=== PATIENT | female | born 1965 | race Caucasian/White ===

== ENCOUNTER → 2020-11-20 14:45 | Outpatient (CLI) | payer OTHER, SELFPAY ==
--- NOTE | ~2020-11-20 | XR_ITS ---
XR knee RT min 4V 11/20/2020 15:41 Indication: Right knee pain Procedure: 4 views right knee Comparison: No prior studies for comparison. Findings: There is moderate osteoarthritis of the right knee characterized by joint narrowing and mar ginal osteophytes. No fracture or traumatic malalignment. Small joint effusion. Impression: 1: Moderate osteoarthritis of the right knee. Reviewed, dictated and finalized at location A. Impression: 1: Moderate osteoarthritis of the right knee.
--- NOTE | ~2020-11-20 | XR_ITS ---
XR knee LT min 4V 11/20/2020 15:40 Indication: Left knee pain Procedure: 4 views left knee Comparison: No prior studies for comparison. Findings: There is moderate osteoarthritis of the left knee. Small knee effusion. No fracture or trau matic malalignment. Impression: 1: Moderate osteoarthritis of the left knee. Reviewed, dictated and finalized at location A. Impression: 1: Moderate osteoarthritis of the left knee.
== END ==
PROVIDERS: PCP Family Medicine; Visit Provider Physician Assistant
DX: M17.0 Bilateral primary osteoarthritis of knee (principal)
CPT/HCPCS: 73564

== ENCOUNTER → 2023-07-25 15:33 | Outpatient (CLI) | payer OTHER, SELFPAY ==
--- NOTE | ~2023-07-25 | MM_ITS ---
EXAMINATION: MM screening scott BI w jocelynn HISTORY: Screening TECHNIQUE: Craniocaudal and mediolateral oblique 3-D tomosynthesis images were obtained and synthetic 2-D images were generated. CAD analysis was submitted and interpreted. COMPARISON: Comparison to multiple prior studies sequentially, with oldest reviewed study dated 05/05. BREAST PARENCHYMAL COMPOSITION: Breast composed of scattered areas of fibroglandular density FINDINGS: There is no evidence of suspicious mass, calcification, or architectural distortion to sugg est malignancy in either breast. There has been no suspicious interval change. IMPRESSION: 1. No mammographic evidence of malignancy. 2. Recommend routine screening mammography in one year. 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
== END ==
PROVIDERS: PCP Physician Assistant; Visit Provider Physician Assistant
DX: Z12.31 Encounter for screening mammogram for malignant neoplasm of breast (principal)
CPT/HCPCS: 77063; 77067

== ENCOUNTER 2023-10-31 09:24 | Outpatient (CLI) | payer OTHER, SELFPAY ==
--- NOTE | 2023-11-11 14:03 | WPDSLEEPSTUD ---
Sleep Study Date of Study: 10/31/23 Ordering Provider: Talia Gonzales PAC Interpreting Physician: Gladys Rothman DO Sleep Study Type: Polysomnogram Height: 1.6 m Weight: 70.76 kg Body Mass Index: 27.6 Neck Circumference (inches): 13 [place]: 12 Reason for Sleep Study Needs new CPAP equipment. Insurance required new study. Sleep History The patient is a 58-year-old female with previously diagnosed sleep apnea in 2011 that had a sleep study ordered by her primary care to get new CPAP equipment. The patient constantly awakens from sleep short of breath. She constantly snores and is constantly loud enough that others complain. She constantly has trouble sleeping when she has a cold. She constantly wakes up gasping for air throughout the night. She constantly has breathing problems at night observed by herself or others. She rarely sweats excessively at night. She rarely has heart palpitations or irregular heartbeats during the night. She occasionally falls asleep during the day but never while driving. She denies cataplexy. She rarely has trouble at school or work due to sleepiness. She rarely experiences vivid dreamlike scenes upon awakening or falling asleep. She denies feeling afraid of going to sleep. She denies having nightmares. She rarely remembers her dreams. She occasionally has thoughts racing through her mind. She rarely feels sad or depressed. She occasionally has anxiety. She occasionally has muscular tension. She rarely notices parts of her body jerk. She rarely kicks during the night. She rarely has crawling and aching feelings in her legs but frequently has leg pain during the night. She occasionally grinds her teeth during sleep but rarely awakens with morning jaw pain. She is frequently bothered by pain during the day but rarely awakened by pain during the night. She frequently wakes up feeling stiff in the morning. She occasionally wakes up with sore or achy muscles. She rarely wakes up with pain in the neck, spine and other joints. She goes to bed at 11:00 p.m. on both weekdays and weekends. She can fall asleep within a few minutes. She wakes up twice throughout the night to urinate and is able to fall back asleep within 5 minutes. She wakes up at 5:30 a.m. on weekdays and 8:00 a.m. on the weekends. She typically gets 6-7 hours of sleep per night. She does not stay in bed after waking up in the morning. She currently lives with her and children. She denies consuming any caffeinated beverages within 2 hours of bedtime. She denies engaging in physical exercise before bedtime. She will watch television before falling asleep. She denies taking naps in the afternoon or the evening. She consumes 2 cups of caffeinated beverage per day. She will have a couple glasses of an alcoholic beverage per week. She denies tobacco and recreational drug use. [facility] Past Medical History Medical History Adjustment disorder Glomerulonephritis pauci-immune 04/12 DANIELLA (obstructive sleep apnea) Vitamin D deficiency Surgical History Surgical History History of 2003 Family History Family History Other Arthritis Cancer Diabetes mellitus Heart disease Hypertension Neuropathy Social History Social History Smoking status: Never smoker Alcohol intake: current Drinks per week: 3 Substance use: never Substance use type: does not use Current Housing: Decline to Answer Concerned About Future Housing: Decline to Answer Difficulty Paying Gas/Electric Bills: Decline to Answer Difficulty Paying for Meds: Decline to Answer Currently Unemployed: Decline to Answer Education: Decline to Answer Difficulty w/ Childcare or Family Care: Decl
[2023-11-11 14:04] VITALS: BMI 27.6
== END 2023-11-01 06:45 | disposition home or self-care (01) ==
LOC: ANHCSM 09:24
PROVIDERS: PCP Physician Assistant; Visit Provider Physician Assistant
DX: G47.33 Obstructive sleep apnea (adult) (pediatric) (principal); R06.83 Snoring; G47.61 Periodic limb movement disorder
CPT/HCPCS: 95810

== ENCOUNTER 2023-12-22 09:51 | Outpatient (CLI) | payer OTHER, SELFPAY ==
--- NOTE | 2023-12-25 21:36 | WPDHOMESLEEP ---
Sleep Study - Home Unattended Date of Study: 12/22/23 Ordering Provider: ALEXANDRA Travis Interpreting Provider: Santa Lee MD Home Sleep Study Type: Watch PAT Height: 1.63 m Weight: 71.214 kg Body Mass Index: 26.9 Neck Circumference (inches): 14 [place]: 12 Reason for Sleep Study Obstructive sleep apnea; she was retested with a basic sleep study 10/31/2023 to get new equipment; her in-lab study on Oct 30 showed an apnea-hypopnea index of of 1.6 with desaturation to 83% which did not qualify her for new equipment. The AHI was normal however her desaturation was low. Her in-lab study was negative due to using PAP up until the night of testing. She returns now for a home sleep test to re-qualify for CPAP equipment. Sleep History Sharon Kim is a 58-year-old female with previously diagnosed sleep apnea in 2011 who was tested to get new CPAP equipment. She had a basic sleep study October 31, 2023 with an AHI of 1.6 and desaturation to 83%. This test showed a normal apnea hypopnea index due to using PAP up until the night of the study, so she was re-tested with the home sleep test. The patient constantly awakens from sleep short of breath. She constantly snores and is constantly loud enough that others complain. She constantly has trouble sleeping when she has a cold. She constantly wakes up gasping for air throughout the night. She constantly has breathing problems at night observed by herself or others. She rarely sweats excessively at night. She rarely has heart palpitations or irregular heartbeats during the night. She occasionally falls asleep during the day but never while driving. She denies cataplexy. She rarely has trouble at school or work due to sleepiness. She rarely experiences vivid dreamlike scenes upon awakening or falling asleep. She denies feeling afraid of going to sleep. She denies having nightmares. She rarely remembers her dreams. She occasionally has thoughts racing through her mind. She rarely feels sad or depressed. She occasionally has anxiety. She occasionally has muscular tension. She rarely notices parts of her body jerk. She rarely kicks during the night. She rarely has crawling and aching feelings in her legs but frequently has leg pain during the night. She occasionally grinds her teeth during sleep but rarely awakens with morning jaw pain. She is frequently bothered by pain during the day but rarely awakened by pain during the night. She frequently wakes up feeling stiff in the morning. She occasionally wakes up with sore or achy muscles. She rarely wakes up with pain in the neck, spine and other joints. She goes to bed at 11:00 p.m. on both weekdays and weekends. She can fall asleep within a few minutes. She wakes up twice throughout the night to urinate and is able to fall back asleep within 5 minutes. She wakes up at 5:30 a.m. on weekdays and 8:00 a.m. on the weekends. She typically gets 6-7 hours of sleep per night. She does not stay in bed after waking up in the morning. She currently lives with her and children. She denies consuming any caffeinated beverages within 2 hours of bedtime. She denies engaging in physical exercise before bedtime. She will watch television before falling asleep. She denies taking naps in the afternoon or the evening. She consumes 2 cups of caffeinated beverage per day. She will have a couple glasses of an alcoholic beverage per week. She denies tobacco and recreational drug use. 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
[2023-12-25 21:37] VITALS: BMI 26.9
== END 2023-12-23 07:30 | disposition home or self-care (01) ==
LOC: ANHCSM 09:52
PROVIDERS: PCP Physician Assistant; Visit Provider Physician Assistant
DX: G47.61 Periodic limb movement disorder (principal); G47.33 Obstructive sleep apnea (adult) (pediatric)
CPT/HCPCS: 95800

== ENCOUNTER 2024-05-09 12:23 | Emergency (ER) | payer OTHER, SELFPAY ==
--- NOTE | ~2024-05-09 | CT_ITS ---
EXAMINATION: CT brain wo con DATE: 05/09/2024 15:50 INDICATION: headache . TECHNIQUE: Computed tomography (CT) of the head was performed without intravenous contrast. The mA wa s adjusted according to patient size. Iterative reconstruction technique was employed. The dose-lengt h product was 605.33 mGy-cm. COMPARISON: None. FINDINGS: No acute intracranial hemorrhage or extra-axial fluid collection. No hydrocephalus, mass, or herniation. No acute ischemic infarct. Unremarkable dural venous sinus attenuation. No acute osseous abnormality. Partially visualized right maxillary opacification with surrounding sclerosis, the remaining aerated spaces are clear. IMPRESSION: No acute intracranial process. Chronic right maxillary sinusitis. Reviewed, dictated and finalized at location K.
[2024-05-09 12:27] VITALS: BP 146/74; PULSE 69; RESP 16; TEMP 36.6; O2SAT 99
--- NOTE | 2024-05-09 15:44 | ED.EYEPROB ---
HPI - Eye Problem General Chief complaint: Eye Problems Stated complaint: blurry vision x2d, throbbing head Time Seen by Provider: 05/09/24 15:18 History of Present Illness HPI Narrative: 58-year-old female presenting to the emergency department for evaluation for 2 weeks of elevated pressure with headache that is throbbing in nature. Patient states he does have hypertension that is typically well controlled with losartan. Patient did have a checkup 2 weeks ago was noted to have some elevated blood pressure. Patient states her systolic blood pressure has been approximately 140 since then. Patient since then she has had persistent headache. Patient has not yet contacted primary care physician regarding this issue. Related Data Home Medications Medication Instructions Recorded Confirmed losartan 25 mg tablet 25 mg PO DAILY 09/10/22 01/18/24 meloxicam 7.5 mg tablet 7.5 mg PO DAILY 05/04/24 Allergies Allergy/AdvReac Type Severity Reaction Status Date / Time amoxicillin Allergy Unknown unknown Verified 05/09/24 12:24 cephalexin Allergy Unknown Unknown Verified 05/09/24 12:24 ciprofloxacin Allergy Unknown Unknown Verified 05/09/24 12:24 Penicillins Allergy Unknown Unknown Verified 05/09/24 12:24 Sulfa (Sulfonamide Allergy Unknown Unknown Verified 05/09/24 12:24 Antibiotics) Latex, Natural Rubber AdvReac Severe Blister Verified 05/09/24 12:24 Review of Systems Review of Systems: All systems reviewed & are unremarkable except as noted in HPI and below PMFSH Past Medical History Medical History Adjustment disorder Glomerulonephritis pauci-immune 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 DANIELLA (obstructive sleep apnea) Vitamin D deficiency Surgical History Surgical History History of arthroplasty of right knee 09/2023 History of 2003 Family History Family History (Updated 05/04/24 @ 15:33 by ALIYAH Chow) Other Arthritis Cancer Diabetes mellitus Glaucoma Heart disease Hypertension Neuropathy Social History Social History (Updated 05/04/24 @ 15:33 by ALIYAH Chow) Smoking status: Never smoker Second hand tobacco smoke exposure: Yes Alcohol intake: current Drinks per week: 3 Substance use: never Substance use type: does not use Do You Feel Safe in your Home?: Yes Lack of Transportation: No Lack of Food: Never True Current Housing: I Have Housing Concerned About Future Housing: Decline to Answer Difficulty Paying Gas/Electric Bills: Decline to Answer Difficulty Paying for Meds: Decline to Answer Currently Unemployed: Decline to Answer Education: Decline to Answer Difficulty w/ Childcare or Family Care: Decline to Answer Living arrangements: with family Occupation/Education: occupation 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 HEAD: normocephalic, atraumatic. No temporal lobe tenderness EYES: PERRLA/EOMI, conjunctivae clear. NOSE: Normal no drainage EARS:TMS clear with good light reflex. THROAT: Pharynx clear, no exudate. NECK: Supple. No adenopathy, no masses. RESPIRATORY: Airway patent, respirations nonlabored. Clear to auscultation bilaterally, no rales, rhonchi, wheezing. CARDIOVASCULAR: Regular rate and rhythm without murmurs rubs or gallops. ABDOMINAL: Soft, nontender, nondistended, normal bowel sounds MUSCULOSKELETAL: Moves all extremities. Strength/ROM intact, No edema, No calf tenderness. NEURO: Alert. Cranial nerves II through XII intact. Good gait. Good coordination SKIN: Warm, dry. Normal Color Course Vital Signs Vital signs: Vital Signs Temperature 97.9 F
[2024-05-09 16:11] LABS: Basophils Percent Auto 0.4 % (0.2-1.2); Eosinophils Absolute Auto 0.2 K/mm3 (0-0.3); Eosinophils Percent Auto 2.5 % (0-4.4); Hematocrit 36.2 % (37.0-47.0); Immature Granulocyte Absolute 0.03 K/mm3 (0.00-0.031); Immature Granulocyte Percent A 0.4 % (0-0.5); Lymphocytes Absolute Auto 2.08 K/mm3 (0.9-3.2); Lymphocytes Percent Auto 27.4 % (18.3-44.2); Mean Corpuscular HGB Conc 33.1 g/dl (32-36); Mean Corpuscular Hemoglobin 29.4 pg (26-34); Mean Corpuscular Volume 88.7 fl (80-100); Mean Platelet Volume 9.3 fl (7.4-10.4); Monocytes Absolute Auto 0.7 K/mm3 (0.1-0.6); Monocytes Percent Auto 9.7 % (2.6-8.5); Neutrophils Absolute Auto 4.5 K/mm3 (1.3-6.7); Neutrophils Percent Auto 59.6 % (45.5-73.1); Platelet Count Result 264 k/mm3 (150-375); Red Blood Count 4.08 M/mm3 (4.2-5.4); Red Cell Distribution Width 13.7 % (11.5-14.5); White Blood Count 7.6 K/mm3 (4.5-10.0)
[2024-05-09 16:21] LABS: INR 0.9; Prothrombin Time 12.7 Seconds (11.1-14.7)
[2024-05-09 16:22] LABS: Alanine Aminotransferase 19 U/L (6-35); Alkaline Phosphatase 67 U/L (38-126); Anion Gap 7 mmol/L (4-12); Aspartate Amino Transferase 22 U/L (14-36); Bilirubin,Total 0.3 mg/dL (0.2-1.3); Blood Urea Nitrogen 24 mg/dL (7-17); Calcium 8.5 mg/dL (8.4-10.2); Carbon Dioxide 29 mmol/L (22-30); Chloride 103 mmol/L (98-107); Estimated Glomerular Filt Rate 46; Glucose 90 mg/dL (65-110); Partial Thromboplastin Time 27.3 Seconds (22.3-36.8); Sodium 139 mmol/L (137-145)
[2024-05-09] MEDS: diphenhydrAMINE HCl INJ 50 MG/ML VIAL 25 MG IV PUSH (16:45)
[2024-05-09] MEDS: PROCHLORPERAZINE EDISYLATE 10 MG/2 ML VIAL IV PUSH (16:45)
[2024-05-09] MEDS: KETOROLAC 15 MG/ML VIAL (*BKC) IV PUSH (16:45)
[2024-05-09] MEDS: hydrALAZINE HCL 20 MG/ML VIAL 10 MG IV PUSH (16:45)
[2024-05-09] MEDS: HYDROmorphone HCL INJ (*CRX) 1 MG/ML SYR 0.5 MG IV PUSH (17:27)
[2024-05-09 18:31] VITALS: BP 116/71; PULSE 65; RESP 12; O2SAT 96
== END 2024-05-09 18:32 | disposition home or self-care (01) ==
PROVIDERS: Emergency Provider Emergency Medicine; PCP Family Medicine
DX: R51.9 Headache, unspecified (principal); I10 Essential (primary) hypertension; G47.33 Obstructive sleep apnea (adult) (pediatric)
CPT/HCPCS: 36415; 70450; 80053; 85025; 85610; 85730; 96374; 96375; 99284; J0360; J0780; J1171; J1200; J1885

== ENCOUNTER 2024-09-29 14:46 | Outpatient (CLI) | payer OTHER, SELFPAY ==
--- NOTE | ~2024-09-29 | MM_ITS ---
EXAMINATION: MM screening scott BI w jocelynn HISTORY: Screening mammogram TECHNIQUE: Craniocaudal and mediolateral oblique 3-D tomosynthesis images were obtained and synthetic 2-D images were generated. CAD analysis was submitted and interpreted. COMPARISON: 07/25/2023, 05/27/2017 BREAST PARENCHYMAL COMPOSITION:Not Dense. There are scattered areas of fibroglandular density. FINDINGS: No suspicious mass, calcification, or architectural distortion are identified in either aric ast to suggest malignancy. There has been no suspicious interval change. IMPRESSION: No mammographic evidence of malignancy. Recommend routine screening mammography in one year. BI-RADS Category 1: Negative Reviewed, dictated and finalized at location . 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
== END 2024-09-29 14:47 | disposition home or self-care (01) ==
LOC: MICIMG 14:47
PROVIDERS: PCP Family Medicine; Visit Provider Family Medicine
DX: Z12.31 Encounter for screening mammogram for malignant neoplasm of breast (principal)
CPT/HCPCS: 77063; 77067

== ENCOUNTER 2024-10-22 00:46 | Day surgery (SDC) | payer OTHER, SELFPAY ==
[2024-10-13 15:52] VITALS: BMI 28.8
--- OUTSIDE RECORDS SUMMARY | 2024-10-22 00:49 | XMS_ITS ---
Author Organization [facility] Address [address] [place] [address] Care Team Providers Care Substance Abuse Clinician Name Role Phone Umang Sheppard Primary Care Provider UnavailCOREY Titus Unavailable [phone] REASON FOR VISIT 1 month f/u Encounters Encounter Location Date Provider Diagnosis [facility] [address] [place] [address] 06/16/2023 COREY LAGUNA Plan Of Treatment No Information Progress Notes * Yeison KIMB:1965 (59 yo F)Acc No.[id number]:06/16/2023 Vascular f/u Patient: Sharon MC Provider: Minda Laguna MD :1965 A ge:57 Y S ex:Female Date:06/16/2023 Address:[address] [place], [place] [id number] Pcp:Umang Sheppard Subjective: * Chief Complaints: * 1 . 1 month f/u. * Medical History: Objective: * Vitals: Assessment: Plan: * Treatment: * * Electronic signature of JC LAGUNA MD on 10/22/2024 at 12:49 AM CDT Sign off status: Pending * Provider: Minda Laguna MD Date: 08/16/2022 Generated for Ricardo alarcon/Mihai/eTransmitting on: 0 10/22/2024 12:49 AM CDT
--- OUTSIDE RECORDS SUMMARY | 2024-10-22 00:49 | XMS_ITS | Clinical Summary ---
Author Organization [facility] Address [address] [facility] [place] [address] Care Team Providers Care Program Manager Rn Name Role Phone Umang Sheppard MD Primary Care Provider [phone] Source Comments [facility],non-owned Affiliates and Associated Physician Practices is amultiple site organization consisting of ambulatory clinics and hospital sitesin [place], [place], [place] and [place]. This disclosure is being madepursuant to the Care Everywhere program and may not contain all information available regarding this patient. Last updated 18.[facility] Allergies Active Allergy Reactions Criticality Noted Date Comments Amoxicillin Urticaria Medium 09/24/2022 Povidone Iodine Skin Reactions 08/05/2023 Ciprofloxacin Urticaria Medium 04/28/2019 Latex Itching,Skin Reactions 08/05/2023 Penicillins Urticaria Medium 09/24/2022 Skin Adhesives Rash Medium 09/18/2023 Sulfa Drugs Urticaria Medium 12/05/2021 Medications * Be aware that medications may not be up to date on this document. Alwaysverify current medications with the patient. Medication Sig Dispensed Refills Start Date End Date Status losartan (Cozaar) 25 MG tablet Take 1 (one) tablet by mouth once daily 02/25/2022 Active Acetaminophen (TYLENOL 8 HOUR PO) Take 1 tablet by mouth 2 times daily as needed Active acetaminophen (Tylenol) 325 MG tablet Take 2 (two) tablets by mouth every 6 hours as needed Maximum allowable Acetaminophen amount = 4 Grams (4000 mg) / 24 hours. 60 tablet 09/05/2023 Active Additional Information Patient not taking.Reported on 09/16/2024 pregabalin (Lyrica) 50 MG capsule Take 1 (one) capsule by mouth 2 times daily 28 capsule 09/05/2023 Active Additional Information Patient not taking.Reported on 09/16/2024 cyclobenzaprine (Flexeril) 10 MG tabletIndications:S/ P total knee arthroplasty, right Take 1 (one) tablet by mouth at bedtime 7 tablet 09/26/2023 Active Additional Information Patient not taking.Reported on 09/16/2024 meloxicam (Mobic) 7.5 MG tabletIndications:Pr imary osteoarthritis of left knee Take 1 (one) tablet by mouth 2 times daily 180 tablet 3 02/19/2024 Active zolpidem (Ambien) 10 MG tablet TAKE 1 TABLET BY MOUTH EVERY DAY AT BEDTIME NEEDED FOR INSOMNIA 01/16/2024 Active escitalopram (Lexapro) 20 MG tablet Take 1 (one) tablet by mouth once daily 02/24/2024 Active metoprolol succinate XL 24hr (Toprol XL) 25 MG tablet Take 1 (one) tablet by mouth once daily 05/25/2024 Active rosuvastatin (Crestor) 5 MG tablet Take 1 (one) tablet by mouth once daily 05/29/2024 Active losartan (Cozaar) 100 MG tablet 06/29/2024 Active Active Problems Problem Noted Date Diagnosed Date Primary osteoarthritis of right knee 09/05/2023 Primary localized osteoarthritis of right knee 0 09/05/2023 Encounters Date Type Department Care Team Description 09/29/2024 Telephone [facility] [address] [place] [phone] Fabian Davis MD Follow-up 09/24/2024 Telephone [facility] [address] [place] [phone] Fabian Davis MD Follow-up 09/16/2024 1:00 PM COUNTRY PRINTER APPRENTICE Office Visit [facility] [address] [place] [phone] Kayla Pryor MD Slac (scapholunate advanced collapse) of wrist, left (Primary Dx) 09/16/2024 Travel from Last 3 Months Immunizations Name Administration Dates Next Due INFLUENZA VACCINE, TRIV. (AF LURIA, FLUZONE TRIVALENT; 6MO+) (IIV3) 09/18/2016,07/12/2015,06/15/2014 Covid Moderna primary monova lent 12+ yr 0.5mL 10/13/2020 MMR 01/05/2019 Social History Tobacco Use Types Packs/Day Years Used Date Smoking Tobacco: Never Smokeless Tobacco: Never Tobacco Cessation:Counseling Given: Not Answered Alcohol Use Standard Drinks/Week Comments Not Currently 4 (1 standard drink = 0.6 oz pur e alcohol) PHQ-2 Answer Date Recorded Patient Health Questionnaire-2 Score 0 09/16/2024 Sex and Gender Information Value Date Recorded Sex Assigned at Female 07/07/2023 10:34 PM COUNTRY PRINTER APPRENTICE Gender Identity Female 07/07/2023 10:34 PM COUNTRY PRINTER APPRENTICE Sexual Orientation Straight 07/07/2023 10 :34 PM COUNTRY PRINTER APPRENTICE Last Filed Vital Signs Vital Sign Reading Time Taken Comments Blood Pressure 109/68 09/06/2023 11:49 AM COUNTRY PRINTER APPRENTICE Pulse 70 09/06/2023 11:49 AM COUNTRY PRINTER APPRENTICE Temperature 36.7 C (98.1 F) 09/06/2023 11:49 AM COUNTRY PRINTER APPRENTICE Respiratory Rate 18 09/06/2023 11:49 AM COUNTRY PRINTER APPRENTICE Oxygen Saturation 90% 09/06/2023 11:49 AM COUNTRY PRINTER APPRENTICE Inhaled Oxygen Concentration - - Weight 75.3 kg (166 lb) 07/07/2024 1:03 PM COUNTRY PRINTER APPRENTICE Height 162.6 cm (5' 4 ) 07/07/2024 1:03 PM COUNTRY PRINTER APPRENTICE Body Mass Index 28.49 07/07/2024 1:03 PM COUNTRY PRINTER APPRENTICE Plan of Treatment Upcoming Encounters Date Type Department Care Team (Latest Contact Info) Description 12/16/2024 1:00 PM CDT Office Visit [facility] [address] [place] [phone] Kayla Pryor MD [address] [place] [phone] 12/20/2024 7:15 AM CDT Hospital Encounter [facility] [address] [place] [address] Fabian Davis MD [address] [facility] [address] [place] [address] Surgery General 12/20/2024 7:15 AM CDT - 12/20/2024 9:[address] [facility] [address] [place] [address] Fabian Davis MD [address] [place] [address] TOTAL KNEE ARTHROPLASTY- LEFT Scheduled Procedures Name Priority Associated Diagnoses Date/Ti me ARTHROPLASTY TOTAL KNEE Diagnosis unknown 12/20/2024 7:15 AM CDT Health Maintenance Due Date Last Done Comments COLOGUARD (AGES 45-75) - COLON CA SCREENING 1965 COLON MONITORING 1963 COLONOSCOPY - COLON CA SCREENING 1963 CT COLONOGRAPHY - COLON CA SCREENING 1965 Colorectal Cancer Screening 1963 FIT - COLON CA SCREENING 1963 FLEX SIG - COLON CA SCREENING 1963 PAP SMEAR 1963 HIV SCREENING 1978 HEPATITIS C SCREENING 08/17/1981 DTAP/TDAP/TD VACCINES (1 - Tdap) 1982 PNEUMOCOCCAL VACCINE 50+ (1 of 1 - PCV) 2013 ZOSTER VACCINE (1 of 2) 2013 MAMMOGRAM 05/27/2019 05/27/2017, 05/05, 05/30/2015, Additional history exists COVID-19 VACCINE (2 - season) 2024 10/13/2020 INFLUENZA VACCINE (#1) 2024 7, 07/12/2015, 06/15/2014 SCREENING FOR DIABETES 08/05/2026 08/05/2023, 2023 Respiratory Syncytial Virus (RSV) Vaccine Pt: or over 60 yrs (1 - 1-dose 75+ series) 2038 DEPRESSION SCREENING Completed 09/16/2024, 11/13/19 24 HEPATITIS B VACCINE Aged Out No longe r eligible based on patient's age to complete this topic HIB VACCINE Aged Out No longer eligi ble based on patient's age to complete this topic HPV VACCINE Aged Out No longer eligi ble based on patient's age to complete this topic MENINGOCOCCAL (Group B) VACCINE SHARED DECISION-MAKING Aged Out No longer eligible based on patient's age to complete this topic MENINGOCOCCAL GROUPS A/C/Y/W VACCINE Aged Out No longer eligible based on patient's age to complete this topic Medical Devices Implanted Type Area Real Estate Agent Device Identifier Shelf Expiration Date Model / Serial / Lot Ins Tib 3-4 11mm Kn Xlpe Dsh Legion Implanted:Qty: 1 on 09/05/2023 by Fabian Davis MD at [facility] Right: Knee [employer] 05/31/2033 [id number] / / [id number] Cmpnt Fem Kn Rt 5 Crcte Rtn Legion Tapia Implanted:Qty: 1 on 09/05/2023 by Fabian Davis MD at [facility] Right: Knee [employer] 02/18/2032 [id number] / / [id number] Stem Tib 55mm 18mm Prfx Mtphsl Kn Implanted:Qty: 1 on 09/05/2023 by Fabian Davis MD at [facility] Right: Knee [employer] 05/20/2033 [id number] / / [id number] Bsplt Tib Legion 3 Kn Rt Tapia Por Implanted:Qty: 1 on 09/05/2023 by Fabian Davis MD at [facility] Right: Knee [employer] 08/14/2029 [id number] / / [id number] Screw Bsplt 20mm 6.5mm Gns2 Kn Tib Por Implanted:Qty: 2 on 09/05/2023 by Fabian Davis MD at [facility] Right: Knee [employer] 05/24/2033 [id number] / / [id number] Screw Bsplt 30mm 6.5mm Gns2 Kn Tib Por Implanted:Qty: 1 on 09/05/2023 by Fabian Davis MD at [facility] Right: Knee [employer] 02/25/2033 [id number] / / [id number] Screw Bsplt 25mm 6.5mm Gns2 Kn Tib Por Implanted:Qty: 1 on 09/05/2023 by Fabian Davis MD at [facility] Right: Knee [employer] 04/21/2033 [id number] / / [id number] Procedures Procedure Name Priority Date/Time Associated Diagnosis Comments COMPREHENSIVE METABOLIC PANEL Pre-Op 08/05/2023 12:59 PM COUNTRY PRINTER APPRENTICE Preop testing from Last 3 Months or Most Recently Relevant to Health Maintenance Results * (ABNORMAL) COMPREHENSIVE METABOLIC PANEL (08/05/2023 12:59 PM COUNTRY PRINTER APPRENTICE) Glucose 103 70 - 105 mg/dL 08/05/2023 1:56 PM COUNTRY PRINTER APPRENTICE [facility] Sodium 142 136 - 145 mmol/L 08/05/2023 1:56 PM COUNTRY PRINTER APPRENTICE [facility] Potassium 3.7 3.5 - 5.1 mmol/L 08/05/2023 1:56 PM COUNTRY PRINTER APPRENTICE [facility] Chloride 106 98 - 107 mmol/L 08/05/2023 1:56 PM COUNTRY PRINTER APPRENTICE [facility] CO2 26 22 - 29 mmol/L 08/05/2023 1:56 PM COUNTRY PRINTER APPRENTICE [facility] Calcium 8.8 8.4 - 10.4 mg/dL 08/05/2023 1:56 PM COUNTRY PRINTER APPRENTICE [facility] Anion Gap 10 6 - 16 mmol/L 08/05/2023 1:56 PM COUNTRY PRINTER APPRENTICE [facility] BUN 23 7 - 26 mg/dL 08/05/2023 1:56 PM COUNTRY PRINTER APPRENTICE [facility] Creatinine 1.17(H) 0.57 - 1.11 mg/dL 08/05/2023 1:56 PM COUNTRY PRINTER APPRENTICE [facility] Alkaline Phosphatase 81 40 - 150 U/L 08/05/2023 1:56 PM COUNTRY PRINTER APPRENTICE [facility] ALT 16 0 - 55 U/L 08/05/2023 1:56 PM COUNTRY PRINTER APPRENTICE [facility] AST 13 5 - 34 U/L 08/05/2023 1:56 PM COUNTRY PRINTER APPRENTICE [facility] Protein Total 6.4 6.4 - 8.3 gm/dL 08/05/2023 1:56 PM COUNTRY PRINTER APPRENTICE [facility] Albumin 3.8 3.4 - 5.0 gm/dL 08/05/2023 1:56 PM COUNTRY PRINTER APPRENTICE [facility] Bilirubin Total 0.3 0.2 - 1.2 mg/dL 08/05/2023 1:56 PM COUNTRY PRINTER APPRENTICE [facility] eGFR by CKD-EPI 54(L) >=90 mL/min/1.7 3 m2 08/05/2023 1:56 PM COUNTRY PRINTER APPRENTICE [facility] Blood BLOOD SPECIMEN / Unknown Venipuncture / Unknown 08/05/2023 12:59 PM COUNTRY PRINTER APPRENTICE 08/05/2023 1:23 PM COUNTRY PRINTER APPRENTICE Fabian Davis MD LAB - CHEMISTRY ORD ERABLES [facility] [address] [place] [address] from Last 3 Months or Most Recently Relevant to Health Maintenance Advance Directives * Full Code (Latest Code Status on File) Date Activated Date Inactivated Comments 09/05/2023 2:40 PM 09/06/2023 3:05 PM * Full Code Date Activated Date Inactivated Comments 09/05/2023 1:07 PM 09/05/2023 2:40 PM Care Teams Program Manager Rn Relationship Specialty Start Date End Date Umang Sheppard MD [address] [place] [id number] PCP - General Family Medicine 03/17/23
--- OUTSIDE RECORDS SUMMARY | 2024-10-22 00:49 | XMS_ITS | Clinical Summary ---
Author Organization [facility] Address [address] [place] [address] Phone Care Team Providers Care Network Systems Consultant Name Role Phone Umang Sheppard MD Primary Care Provider [phone] Allergies Active Allergy Reactions Criticality Noted Date Comments Cephalexin 04/28/2019 Ciprofloxacin 04/28/2019 Sulfa Antibiotics 04/28/2019 Medications Medication Sig Dispensed Refills Start Date End Date Status losartan (COZAAR) 25 MG tablet 1 tab/cap qday 0 03/06/2016 Active escitalopram (LEXAPRO) 20 MG tablet Take 20 mg by mouth 1 (one) time each day 1 04/07/2019 Active meloxicam (MOBIC) 15 MG tablet 05/21/2021 Active cyclobenzaprine (FLEXERIL) 10 MG tablet TAKE 1 TABLET BY MOUTH EVERY DAY AT BEDTIME NEEDED 01/12/2022 Active terbinafine (LamISIL) 250 MG tablet Take 250 mg by mouth 1 (one) time each day 01/21/2022 Active Active Problems Problem Noted Date Diagnosed Date Chronic kidney disease, stage 3 (moderate) 09/18 Other proteinuria 07/12/2015 Microscopic polyangiitis 07/12/2015 Hypertensive chronic kidney disease with stage 1 through stage 4 chronic kidney disease, or unspecified chronic kidney disease 07/12/2015 Essential (primary) hypertension 07/12/2015 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 06/15/2014 Polyarteritis nodosa 08/16/2013 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 here 03/02/2012 Chronic kidney disease 03/02/2012 Immunizations Name Administration Dates Next Due Influenza TIV (IM) 09/18/2016,07/12/2015, 014 MMR 01/05/2019 Moderna Sars-cov-2 Vaccination 10/13/2020 Sars-cov-2, Unspecified 10/13/2020 Family History Medical History Relation Comments Kidney disease Neg Hx Kidney stone Neg Hx Social History Tobacco Use Types Packs/Day Years Used Date Smoking Tobacco: Never Smokeless Tobacco: Never Alcohol Use Standard Drinks/Week Comments No 0 (1 standard drink = 0.6 oz pur e alcohol) Sex and Gender Information Value Date Recorded Sex Assigned at Not on file Gender Identity Not on file Sexual Orientation Not on file Last Filed Vital Signs Vital Sign Reading Time Taken Comments Blood Pressure 132/74 03/11/2022 3:03 PM CDT Pulse - - Temperature 35.9 C (96.7 F) 03/11/2022 3:03 PM CDT Respiratory Rate 18 03/11/2022 3:03 PM CDT Oxygen Saturation - - Inhaled Oxygen Concentration - - Weight 75.8 kg (167 lb) 03/11/2022 3:03 PM CDT Height 165.1 cm (5' 5 ) 03/11/2022 3:03 PM CDT Body Mass Index 27.79 03/11/2022 3:03 PM CDT Plan of Treatment Health Maintenance Due Date Last Done Comments Pneumococcal PPSV23 Highest Risk Adult (1 of 3 - PCV13) 1982 COVID-19 Vaccine (2 - season) 04/04/202407/2021, 10/13/2020 Influenza Vaccine (#1) 2024 7, 07/12/2015, 06/15/2014 Care Teams Network Systems Consultant Relationship Specialty Start Date End Date Umang Sheppard MD PCP - General Internal Medicine 04/28/19
--- OUTSIDE RECORDS SUMMARY | 2024-10-22 00:50 | XMS_ITS | Clinical Summary ---
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 MANAGER Gender Identity Not on file Sexual Orientation Not on file Occupation Industry Job Start Date Job End Date Not on file Not on file Not on file Not on file Plan of Treatment Health Maintenance Due Date Last Done Comments DTAP/TDAP/TD VACCINES (1 - Tdap) 1982 PAP SMEAR 1993 COLORECTAL SCREENING 2008 Colorectal Cancer Screening 2008 FIT-DNA Q 3 years 2008 FIT/FOBT Q 1 year 2008 Flex Sig/CT Colonography Q 5 years 2008 ZOSTER VACCINE (1 of 2) 2013 BREAST CANCER SCREENING 05/27/2018 05/27/20 17, 05/28/2016, 05/30/2015, Additional history exists INFLUENZA VACCINE (#1) 2024 RSV VACCINE (60+ or ) (1 - 1-dose 75+ series) 2038 Procedures Procedure Name Priority Date/Time Associated Diagnosis Comments MAMMO SCREEN BILAT W OR WO CAD Routine 05/27/2017 1:55 PM CDT Visit for screening mammogram from Last 3 Months or Most Recently Relevant to Health Maintenance Results * MAMMO SCREEN BILAT W OR WO CAD (05/27/2017 1:55 PM CDT) Anatomical Region Laterality Modality Breast Bilateral Mammography 05/27/2017 1:55 PM CDT Narrative 05/30/2017 2:31 PM CDT BILATERAL FULL-FIELD DIGITAL SCREENING MAMMOGRAM AND CAD 05/27/2017 HISTORY: Annual screening COMPARISON: May 2011 through May 2016 BREAST COMPOSITION: Scattered fibroglandular densities FINDINGS: 2 masses are present in the lateral left breast at the mid to posterior depth. The more posterior lesion likely represents a lymph node. The more anterior nodule is nonspecific and additional imaging should be performed for further characterization. Both have increased in size. No mass or distortion is present on the right. CAD is utilized. Overall assessment: BI-RADS Category 0: Needs additional imaging evaluation RECOMMENDATION: Ultrasound is recommended for further characterization of the nodules within the lateral left breast which may represent benign intramammary lymph nodes. Diagnostic mammographic views may also be performed if needed. Dictated from: [facility] Procedure Note ChambersAudie MD - 05/30/2017 BILATERAL FULL-FIELD DIGITAL SCREENING MAMMOGRAM AND CAD 05/27/2017 HISTORY: Annual screening COMPARISON: May 2011 through May 2016 BREAST COMPOSITION: Scattered fibroglandular densities FINDINGS: 2 masses are present in the lateral left breast at the mid to posterior depth. The more posterior lesion likely represents a lymph node. The more anterior nodule is nonspecific and additional imaging should be performed for further characterization. Both have increased in size. No mass or distortion is present on the right. CAD is utilized. Overall assessment: BI-RADS Category 0: Needs additional imaging evaluation RECOMMENDATION: Ultrasound is recommended for further characterization of the nodules within the lateral left breast which may represent benign intramammary lymph nodes. Diagnostic mammographic views may also be performed if needed. Dictated from: [facility] Umang Cruzito Sheppard MD MAMMO ORDERABLES Final Resu lt from Last 3 Months or Most Recently Relevant to Health Maintenance Insurance [facility] BLUE ACCESS CHOICE Care Teams Assistant Portfolio Manager Relationship Specialty Start Date End Date Umang Sheppard MD [address] [place] [address] [place] [phone] PCP - General Family Practice 05/21/16
--- OUTSIDE RECORDS SUMMARY | 2024-10-22 00:50 | XMS_ITS ---
Author Organization [facility] Address [address] [facility] [address] [facility] [address] [place] [address] Care Team Providers Care Quality Assurance Analyst Name Role Phone Umang Sheppard Primary Care Provider UnavailCOREY Titus Unavailable [phone] Medications Medication SIG (Take, Route, Frequency, Duration) Notes Start Date End Date Status Loratadine 10 MG 1 tablet Orally Once a day Active Terbinafine Active Magnesium Gluconate 500 MG 1 tablet Oral ly twice a day for 30 days 05/12/2023 Active Magnesium 300 MG 1 capsule with a elizabeth l Orally Once a day for 30 days 05/12/2023 Active Escitalopram Oxalate Active Losartan Potassium 25 MG 1 tablet Orally Once a day Active Encounters Encounter Location Date Provider Diagnosis [facility] [address] [facility] [address] [place], [place] [id number] 06/24/2023 COREY LAGUNA Plan Of Treatment No Information Progress Notes * Gopi DANGaDOB:1965 (59 yo F)Acc No.[id number]:06/24/2023 Patient: Sharon MC Provider: Minda Laguna MD :1965 A ge:57 Y S ex:Female Date:06/24/2023 Address:[address] [place], [place] [id number] Pcp:Umang Sheppard Subjective: * Chief Complaints: * * Medical History: * Medications: T aking Terbinafine , Taking Loratadine 10 MG Tablet 1 tablet Orally Once a day , Taking Losartan Potassium 25 MG Tablet 1 tablet Orally Once a day , Taking Escitalopram Oxalate , Taking Magnesium 300 MG Capsule 1 capsule with a meal Orally Once a day , Taking Magnesium Gluconate 500 MG Tablet 1 tablet Orally twice a day Objective: * Vitals: Assessment: Plan: * Treatment: * * Electronic signature of JC LAGUNA MD on 10/22/2024 at 12:49 AM CDT Sign off status: Pending * Provider: Minda Laguna MD Date: 08/24/2022 Generated for Ricardo alarcon/Mihai/Elliot on: 0 10/22/2024 12:49 AM CDT
--- OUTSIDE RECORDS SUMMARY | 2024-10-22 00:50 | XMS_ITS | Encounter Summary ---
Author Organization [facility] Address 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
--- OUTSIDE RECORDS SUMMARY | 2024-10-22 00:50 | XMS_ITS ---
Author Organization [facility] Address [address] [facility] [address] [address] Care Team Providers Care Sand Screener Operator Name Role Phone Umang Sheppard Primary Care Provider UnavailCOREY Titus Unavailable [phone] Encounters Encounter Location Date Provider Diagnosis [facility] [address] [facility] [address] [place] [address] 06/24/2023 COREY LAGUNA Plan Of Treatment No Information Progress Notes * Yeison DANGB:1965 (57 yo F)Acc No.[id number]:06/24/2023 Patient: Sharon MC :1965 A ge:57 Y S ex:Female Address:[address] [place] [address] * true * Date: Generated for Ricardo alarcon/Mihai/eTransmitting on: 0 10/22/2024 12:49 AM CDT
--- OUTSIDE RECORDS SUMMARY | 2024-10-22 00:50 | XMS_ITS | Continuity of Care Document ---
Author Organization [facility] Address [address] [place] [address] [address] [place] [address] Phone Care Team Providers Care Caddy Packer Name Role Phone Miguel Augustine Unavailable Unavailable Procedures Procedure Date Office/outpatient Visit, Est Office/outpatient Visit, Est Office/outpatient Visit, Est Office/outpatient Visit, Est Office/outpatient Visit, New Advance Directives Directive Yes / No Effective Date File Name No Information Encounters Encounter Description Practice Location Reason(s) For Visit Diagnoses Date Provider Providers Copied on Encounter Office/outpat ient Visit, [facility], [address] [place] [address] [address], [place], [place], [id number], tel:[phone] SEC [facility] No Information 0 Krishnasamy Miguel. [address], [facility], [place]. tel:[phone] Office/outpat ient Visit, [facility], [address] [place] [address] [address], [place], [place], [id number], [place] tel:[phone] [facility] No Information 6[address] 0 Krishnasamy Miguel. [address] [facility] [address], [place], [place], [facility], [place]. tel:[phone] Office/outpat ient Visit, [facility], [address] [place] [address] [address], [place], [place], [id number], [place] tel:[phone] [facility] No Information [address] Fa[address] Miguel. [address] [facility] [address], [place], [address], . tel:[phone] Office/outpat ient Visit, [facility], [address], [place], [place], [id number], [place] tel:[phone] [facility] No Information 0 4[address] 9 Sharnasamy Miguel. [address] [facility] [address], [place], [address], . tel:[phone] Office/outpat ient Visit, [facility], [address], [place], [place], [id number], [place] tel:[phone] [facility] No Information 8 [address]. [facility] [facility] [address], [place], [place], [facility], . tel:[phone] Family History Family Member Type Diagnosis Age At Onset No Information Payers Payer name Insurance type Covered constitution party ID Liz etiennetrenton(s) [facility] [id number] Social History Type Description Quantity Date Captured Comments Sex Female Smoking Status No Information Chief Complaint And Reason For Visit No Information Reason For Referral Reason For Referral No Information History Of Present Illness Encounter Date Complaint History Of Prese nt Illness No Information Functional Status Date Functional Assessmen t No Information Instructions Date Instruction Additional Infor mation No Information Assessments Type Assessment Date No Information Patient Care Teams Name Effective Dates (start - stop) Status Members No Information
[2024-10-22 06:53] VITALS: BP 111/78; PULSE 70; RESP 18; TEMP 36.2; O2SAT 99
[2024-10-22] MEDS: LACTATED RINGERS 1,000 ML 150 ML IV CONT (07:01)
--- NOTE | 2024-10-22 07:08 | WPDANESEPP ---
Anes - Eval Pre Procedure Procedure: Operation Date: 10/22/24 08:00 Proposed Procedures p Screening Colonoscopy - Andrew Julien MD Date/Time: 10/22/24 07:08 Pre Op Diagnosis: Screening Patient Data Age: 59 Gender: F Height: 1.63 m Weight: 77.1 kg Last Vital Signs Temp 36.2 C L 10/22/24 06:53 Pulse 70 10/22/24 06:53 Resp 18 10/22/24 06:53 BP 111/78 10/22/24 06:53 Pulse Ox 99 10/22/24 06:53 O2 Del Method Room Air 10/22/24 06:53 Allergies Allergy/AdvReac Type Severity Reaction Status Date / Time amoxicillin Allergy Unknown unknown Verified 10/22/24 06:52 cephalexin Allergy Unknown Unknown Verified 10/22/24 06:52 ciprofloxacin Allergy Unknown Unknown Verified 10/22/24 06:52 Penicillins Allergy Unknown Unknown Verified 10/22/24 06:52 Sulfa (Sulfonamide Allergy Unknown Unknown Verified 10/22/24 06:52 Antibiotics) Latex, Natural Rubber AdvReac Severe Blister Verified 10/22/24 06:52 Home Medications ?Medication ?Instructions ?Recorded ?Confirmed ?Type escitalopram oxalate 20 mg tablet 20 mg PO DAILY #90 tabs 05/03/24 10/22/24 Rx losartan 100 mg tablet 100 mg PO DAILY #90 tabs 06/29/24 10/22/24 Rx loratadine 10 mg tablet 10 mg PO DAILY 09/02/24 10/22/24 History meloxicam 7.5 mg tablet 7.5 mg PO DAILY PRN arthritis 09/02/24 10/13/24 History metoprolol succinate 25 mg 25 mg PO DAILY #90 tabs 09/17/24 10/22/24 Rx tablet,extended release 24 hr metoprolol succinate 25 mg 25 mg PO DAILY #90 tabs 09/17/24 10/22/24 Rx tablet,extended release 24 hr rosuvastatin 5 mg tablet 5 mg PO DAILY #90 tabs 09/17/24 10/22/24 Rx rosuvastatin 5 mg tablet 5 mg PO DAILY #90 tabs 09/17/24 10/22/24 Rx ondansetron HCl 4 mg tablet 4 mg PO Q6H PRN nausea and 10/13/24 Rx vomiting #4 tabs Patient hx anesthesia problems: none Family hx anesthesia problems: none Results Review: All pre-operative results and documents have been reviewed as part of the pre-operative evaluation. [facility] Past Medical History Medical History Stage 3a chronic kidney disease Essential (primary) hypertension Glomerulonephritis pauci-immune 04/12 Adjustment disorder Vitamin D deficiency DANIELLA (obstructive sleep apnea) Surgical History Surgical History History of arthroplasty of right knee 09/2023 History of 2003 Family History Family History Father Leukemia, chronic Diabetes mellitus Heart disease Cerebrovascular accident Mother Heart disease Hypertension Thyroid disorder Diabetes mellitus Other Arthritis Cancer Glaucoma Neuropathy Social History Social History Smoking status: Never smoker Second hand tobacco smoke exposure: Yes Alcohol intake: current Drinks per week: 2 Alcohol use details: sweet wine Substance use: never Substance use type: does not use Do You Feel Safe in your Home?: Yes Lack of Transportation: No Lack of Food: Never True Current Housing: I Have Housing Concerned About Future Housing: Decline to Answer Difficulty Paying Gas/Electric Bills: Decline to Answer Difficulty Paying for Meds: Decline to Answer Currently Unemployed: Decline to Answer Education: Decline to Answer Difficulty w/ Childcare or Family Care: Decline to Answer Living arrangements: with family Occupation/Education: occupation 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
--- NOTE | 2024-10-22 07:47 | P.HP_ITS ---
H&P: HPI History of Present Illness Date/Time: 10/22/24 07:47 Chief Complaint: Screening colonoscopy Narrative: This is the patient's 2nd colonoscopy after 10 years.. There are no GI symptoms and there is no family history of colorectal cancer. 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 Adjustment disorder Vitamin D deficiency DANIELLA (obstructive sleep apnea) Surgical History Surgical History History of arthroplasty of right knee 09/2023 History of 2003 Family History Family History Father Leukemia, chronic Diabetes mellitus Heart disease Cerebrovascular accident Mother Heart disease Hypertension Thyroid disorder Diabetes mellitus Other Arthritis Cancer Glaucoma Neuropathy Social History Social History Smoking status: Never smoker Second hand tobacco smoke exposure: Yes Alcohol intake: current Drinks per week: 2 Alcohol use details: sweet wine Substance use: never Substance use type: does not use Do You Feel Safe in your Home?: Yes Lack of Transportation: No Lack of Food: Never True Current Housing: I Have Housing Concerned About Future Housing: Decline to Answer Difficulty Paying Gas/Electric Bills: Decline to Answer Difficulty Paying for Meds: Decline to Answer Currently Unemployed: Decline to Answer Education: Decline to Answer Difficulty w/ Childcare or Family Care: Decline to Answer Living arrangements: with family Occupation/Education: occupation 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 Gender identity (if verbalized by the patient): Female Sexual Orientation (if Verbalized by the Patient): Straight or Heterosexual Spiritual care concerns: No Meds Home Medications and Allergies Home Medications ?Medication ?Instructions ?Recorded ?Confirmed ?Type escitalopram oxalate 20 mg tablet 20 mg PO DAILY #90 tabs 05/03/24 10/22/24 Rx losartan 100 mg tablet 100 mg PO DAILY #90 tabs 06/29/24 10/22/24 Rx loratadine 10 mg tablet 10 mg PO DAILY 09/02/24 10/22/24 History meloxicam 7.5 mg tablet 7.5 mg PO DAILY PRN arthritis 09/02/24 10/13/24 History metoprolol succinate 25 mg 25 mg PO DAILY #90 tabs 09/17/24 10/22/24 Rx tablet,extended release 24 hr metoprolol succinate 25 mg 25 mg PO DAILY #90 tabs 09/17/24 10/22/24 Rx tablet,extended release 24 hr rosuvastatin 5 mg tablet 5 mg PO DAILY #90 tabs 09/17/24 10/22/24 Rx rosuvastatin 5 mg tablet 5 mg PO DAILY #90 tabs 09/17/24 10/22/24 Rx ondansetron HCl 4 mg tablet 4 mg PO Q6H PRN nausea and 10/13/24 Rx vomiting #4 tabs Allergies Allergy/AdvReac Type Severity Reaction Status Date / Time amoxicillin Allergy Unknown unknown Verified 10/22/24 06:52 cephalexin Allergy Unknown Unknown Verified 10/22/24 06:52 ciprofloxacin Allergy Unknown Unknown Verified 10/22/24 06:52 Penicillins Allergy Unknown Unknown Verified 10/22/24 06:52 Sulfa (Sulfonamide Allergy Unknown Unknown Verified 10/22/24 06:52 Antibiotics) Latex, Natural Rubber AdvReac Severe Blister Verified 10/22/24 06:52 Vital Signs Vital Signs - 24 hr 10/22/24 06:53 Temperature 97.1 F L Pulse Rate 70 Respiratory Rate 18 Blood Pressure 111/78 Pulse Oximetry 99 Oxygen Delivery Room Air Exam Const: General: cooperative and healthy appearing Resp: Effort & Inspection: normal respiratory effort and able to speak in complete sentences Auscultation: clear to auscultation bilaterally Cardio: Rate: regular rate Rhythm: regular rhythm GI: Inspection: normal to inspection GI Palp: No No hepatosplenomegaly present Auscultation: normal bowel sounds Rectal Exam: deferred Skin: General skin exam: normal color Psych: Appearance: grossly normal Mental Status: mental status grossly normal Assessment and Plan Assessment and plan (1) Screening for colon cancer: Code(s): Z12.11 - Encounter for screening for malignant neoplasm of colon Status: Acute Assessment and Plan: The patient is deemed a good candidate for the procedure. Consent signed. Will proceed.
[2024-10-22 08:15] VITALS: BP 89/51; PULSE 69; RESP 16; O2SAT 93
[2024-10-22 08:25] VITALS: BP 89/52; PULSE 71; RESP 14; O2SAT 96
[2024-10-22 08:35] VITALS: BP 116/72; PULSE 73; RESP 20; O2SAT 100
== END 2024-10-22 08:44 | disposition home or self-care (01) ==
PROVIDERS: PCP Family Medicine; Referring Provider Family Medicine; Visit Provider Internal Medicine Gastroenterology
PROC: 0DJD8ZZ Inspection of Lower Intestinal Tract, Via Natural or Artificial Opening Endoscopic (ICD-10-PCS; CPT 45378; principal; 2024-10-22 08:00)
DX: Z12.11 Encounter for screening for malignant neoplasm of colon (principal); D12.5 Benign neoplasm of sigmoid colon; E66.9 Obesity, unspecified; Z68.29 Body mass index [BMI] 29.0-29.9, adult
CPT/HCPCS: 45385; 88305; J2003; J2704; J7120

== ENCOUNTER 2025-02-28 17:07 | Emergency (ER) | payer OTHER, SELFPAY ==
--- NOTE | ~2025-02-28 | XR_ITS ---
HISTORY: Recent surgery, increased swelling COMPARISON: The TECHNIQUE: 3 views of the left wrist were performed. FINDINGS: Overlying casting material obscures fine bony detail. Absence of the scaphoid, the lunate, and partial absence of the trapezium. Extensive soft tissue swelling is evident. Multiple tacks are identified within the lunate, hamate, and proximal portion of the scaphoid. No discrete acute fracture deformity is identified. IMPRESSION: Postoperative change within the left wrist, as detailed above, without acute fracture deformity. Reviewed, dictated and finalized at location A. IMPRESSION: Postoperative change within the left wrist, as detailed above, without acute fr acture deformity.
--- OUTSIDE RECORDS SUMMARY | 2025-02-28 17:11 | XMS_ITS | Encounter Summary ---
Author Organization [facility] Address [address] [facility] [place] [address] Care Team Providers Care Needle Punch Machine Operator Name Role Phone Shanae Peralta DO Primary Care Provider [phone] Encounter Details Date Type Department Care Team (Late Contact Info) Description 02/25/2025 Orders Only [facility] - [facility] [address] [place] [address] Enoch Lemos, HELICOPTER MECHANIC-VISITOR SERVICES TECHNICIAN [address] [address] Left wrist pain Social History Tobacco Use Types Packs/Day Years Used Date Smoking Tobacco: Never Smokeless Tobacco: Never Alcohol Use Standard Drinks/Week Comments Not Currently 4 (1 standard drink = 0.6 oz pur e alcohol) rarely PHQ-2 Answer Date Recorded Patient Health Questionnaire-2 Score 0 01/19/2025 Comments Unknown Sex and Gender Information Value Date Recorded Sex Assigned at Female 07/07/2023 10:34 PM SUPERVISOR CONTINUOUS WELD PIPE MILL Legal Sex Female 11:20 AM CDT Gender Identity Female 07/07/2023 10:34 PM SUPERVISOR CONTINUOUS WELD PIPE MILL Sexual Orientation Straight 07/07/2023 10 :34 PM SUPERVISOR CONTINUOUS WELD PIPE MILL documented as of this encounter Plan of Treatment Upcoming Encounters Date Type Department Care Team (Late st Contact Info) Description 03/10/2025 10:45 AM CDT Office Visit [facility] [address] [place] [address] Enoch Lemos, HELICOPTER MECHANIC-VISITOR SERVICES TECHNICIAN [address] [facility] [address] [place] [address] 04/26/2025 1:15 PM CDT Office Visit [facility] [address] [place] [address] Fabian Davis MD [address] [facility] [address] [place] [address] Scheduled Orders Name Type Priority Associated Diagnoses Orde r Schedule XR Wrist Left 3Vw or More Imaging Routine Left wrist pain 1 Occurrences starting 02/25/2025 until 02/25/2026 documented as of this encounter Visit Diagnoses Diagnosis Left wrist pain- Primary Pain in joint, forearm documented in this encounter Care Teams Needle Punch Machine Operator Relationship Specialty Start Date End Date Shanae Peralta DO [address] [place] [address] PCP - General Family Medicine 12/02/24 documented as of this encounter
--- OUTSIDE RECORDS SUMMARY | 2025-02-28 17:11 | XMS_ITS | Continuity of Care Document ---
Author Organization [facility] Address [address] [place] [address] [address] [place] [address] Phone Care Team Providers Care President & Founder Name Role Phone Miguel Augustine Unavailable Unavailable Procedures Procedure Date Office/outpatient Visit, Est Office/outpatient Visit, Est Office/outpatient Visit, Est Office/outpatient Visit, Est Office/outpatient Visit, New Advance Directives Directive Yes / No Effective Date File Name No Information Encounters Encounter Description Practice Location Reason(s) For Visit Diagnoses Date Provider Providers Copied on Encounter Office/outpat ient Visit, [facility] [place], [address] [place] [address] [address], [place], [place], [id number], tel:[phone] SEC [facility] No Information 0 Krishnasamy Miguel. [address], [facility], [place]. tel:[phone] Office/outpat ient Visit, [facility] [place], [address] [place] [address] [address], [place], [place], [id number], [place] tel:[phone] SEC [facility] No Information 6201 0 Krishnasamy Miguel. [address] [facility] [address], [place], [place], [facility], [place]. tel:[phone] Office/outpat ient Visit, [facility] [place], [address] [place] [address] [address], [place], [place], [id number], [place] tel:[phone] [facility] No Information 6[address] Fawn Miguel. [address] [facility] [address], [place], [address], . tel:[phone] Office/outpat ient Visit, [facility] [place] [facility], [address], [place], [place], [id number], [place] tel:[phone] [facility] No Information 0 4[address] 9 Sharnasamy Miguel. [address] [facility] [address], [place], [address], . tel:[phone] Office/outpat ient Visit, [facility] [place], [address], [place], [place], [id number], [place] tel:[phone] [facility] No Information 8 [address]. [facility] [facility] [address], [place], [place], [facility], . tel:[phone] Family History Family Member Type Diagnosis Age At Onset No Information Payers Payer name Insurance type Covered green party ID Liz etiennetrenton(s) [facility] [id number] Social History Type Description Quantity Date Captured [...]
--- OUTSIDE RECORDS SUMMARY | 2025-02-28 17:11 | XMS_ITS | Clinical Summary ---
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 Gender Identity Not on file Sexual Orientation Not on file Occupation Industry Job Start Date Job End Date Not on file Not on file Not on file Not on file Plan of Treatment Health Maintenance Due Date Last Done Comments DTAP/TDAP/TD VACCINES (1 - Tdap) 1982 HPV/Cotest (21-29) 1984 CERVICAL CANCER SCREENING 1993 HPV/Cotest (30-65) 1993 PAP SMEAR 1993 COLORECTAL SCREENING 2008 Colorectal Cancer Screening 2008 FIT-DNA Q 3 years 2008 FIT/FOBT Q 1 year 2008 Flex Sig/CT Colonography Q 5 years 2008 ZOSTER VACCINE (1 of 2) 2013 BREAST CANCER SCREENING 05/27/2018 05/27/20 17, 05/28/2016, 05/30/2015, Additional history exists INFLUENZA VACCINE (#1) 2025 RSV VACCINE (60+ or ) (1 - [...] Dictated from: [facility] Procedure Note Audie Araiza MD - 05/30/2017 BILATERAL FULL-FIELD DIGITAL SCREENING [...] needed. Dictated from: [facility] Umang Sheppard MD MAMMO ORDERABLES Final Resu lt from Last 3 Months or Most Recently Relevant to Health Maintenance Insurance [facility] BLUE ACCESS CHOICE Care Teams Development Mgr Relationship Specialty Start Date End Date Umang Sheppard MD [address] [place] [phone] PCP - General Family Practice 05/21/16
--- OUTSIDE RECORDS SUMMARY | 2025-02-28 17:11 | XMS_ITS | Encounter Summary ---
Author Organization [facility] Address 

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
--- OUTSIDE RECORDS SUMMARY | 2025-02-28 17:11 | XMS_ITS | Clinical Summary ---
Author Organization [facility] Address [address] [place] [address] Care Team Providers Care Database Modeler Name Role Phone Shanae Peralta DO Primary Care Provider [phone] Source Comments [facility],non-owned Affiliates and Associated Physician Practices is amultiple site organization consisting of ambulatory clinics and hospital sitesin [place], [place], [place] and [place]. This disclosure is being madepursuant to the Care Everywhere program and may not contain all information available regarding this patient. Last updated 18.[facility] Allergies Active Allergy Reactions Criticality Noted Date Comments Amoxicillin Urticaria Medium 09/24/2022 Povidone Iodine Skin Reactions 08/05/2023 Ciprofloxacin Urticaria Medium 04/28/2019 Latex Itching,Skin Reactions 08/05/2023 Penicillins Urticaria Medium 09/24/2022 Skin Adhesives Rash Medium 09/18/2023 Sulfa Drugs Urticaria Medium 12/05/2021 Medications * Be aware that medications may not be up to date on this document. Alwaysverify current medications with the patient. meloxicam (Mobic) 7.5 MG tabletIndications :Primary osteoarthritis of left knee Take 1 (one) tablet by mouth 2 times daily 180 tablet 3 02/19/20 24 Active Additional Information Patient not taking.Reason: Other, Informant: Patient, Reported on 02/17/2025 zolpidem (Ambien) 10 MG tablet TAKE 1 TABLET BY MOUTH EVERY DAY AT BEDTIME NEEDED FOR INSOMNIA 01/16/20 Active escitalopram (Lexapro) 20 MG tablet Take 1 (one) tablet by mouth once daily 02/24/20 24 Active metoprolol succinate XL 24hr (Toprol XL) 25 MG tablet Take 1 (one) tablet by mouth once daily 05/25/20 24 Active rosuvastatin (Crestor) 5 MG tablet Take 1 (one) tablet by mouth once daily 05/29/20 Active losartan (Cozaar) 100 MG tablet 06/29/20 Active loratadine (Claritin) 10 MG tablet Take 1 (one) tablet by mouth once daily Active pregabalin (Lyrica) 50 MG capsule Take 1 (one) capsule by mouth 2 times daily 28 capsule 9:23 AM CDT 12/22/19 Active Additional Information Patient not taking.Reason: Patient adjusted, Reported on 02/23/2025 acetaminophen (Tylenol) 500 MG tablet Take 2 (two) tablets by mouth every 6 hours as needed for Fever or Pain. Maximum allowable Acetaminophen amount = 4 Grams (4000 mg) / 24 hours. 100 tablet 5 9:23 AM CDT 12/22/19 Active senna (Senokot) 8.6 MG tablet Take 1 (one) tablet by mouth once daily as needed (constipation). Narcotics can cause constipation. Please take while taking narcotic pain medications to avoid constipation. Do not take if having loose stools. 30 tablet 9:23 AM CDT 12/22/19 Active Additional Information Patient not taking.Reason: Patient adjusted, Reported on 02/23/2025 polyethylene glycol 3350 (MiraLax) 17 GM/SCOOP powderIndications :Constipation Mix and dissolve 1 capful (17 grams) in liquid and drink by mouth once daily as needed for Constipation. Narcotics can cause constipation. Please take while taking narcotic pain medications to avoid constipation. Do not take if having loose stools. 510 g 9:23 AM CDT 12/22/19 25 Active Additional Information Patient not taking.Reason: Patient adjusted, Reported on 02/23/2025 oxyCODONE, immediate release, (Roxicodone) 5 MG tabletIndications :Acute Pain Take 1 (one) tablet by mouth every 6 hours as needed for Pain (breakthrough pain) 40 tablet 5 9:23 AM CDT 12/22/19 Active Additional Information Patient not taking.Reason: Patient adjusted, Reported on 02/23/2025 clindamycin (Cleocin) 300 MG capsule Take 2 (two) capsules by mouth 1 Hour prior to Dental Appointment 2 capsule 11 01/20/20 Active Additional Information Patient not taking.Reason: Patient adjusted, Reported on 02/23/2025 clindamycin (Cleocin) 300 MG capsule Take 2 (two) capsules by mouth 1 Hour prior to Dental Appointment 1 hour prior to dental or tattoo appointment 2 capsule 11 01/20/20 Active Additional Information Patient not taking.Reason: Patient adjusted, Reported on 02/23/2025 aspirin (Aspirin) 81 MG chew tablet 12/23/19 25 Active ibuprofen (Motrin) 800 MG tablet Take 1 (one) tablet by mouth every 8 hours as needed for Pain 02/20/20 25 Active acetaminophen (Tylenol) 500 MG tablet Take 1 (one) tablet by mouth every 8 hours Maximum allowable Acetaminophen amount = 4 Grams (4000 mg) / 24 hours 02/20/20 25 Active docusate sodium (Colace) 100 MG capsule Take 1 (one) capsule by mouth once daily as needed - use for constipation while taking narcotic medications. 02/20/20 25 Active cyclobenzaprine (Flexeril) 10 MG tabletIndications :S/P total knee arthroplasty, right Take 1 (one) tablet by mouth at bedtime 30 tablet 1 02/22/20 25 Active HYDROcodone-aceta minophen (Sanborn) 5-325 MG tabletIndications :Post-operative state Take 1 (one) tablet by mouth every 6 hours as needed for Pain Take 1 tablet as needed every 4 hours for severe pain not controlled with over the counter medications 24 tablet 02/24/20 25 Active losartan (Cozaar) 25 MG tablet Take 1 (one) tablet by mouth once daily 02/26/20 22 025 Discontin ued(List Clean-Up) docusate sodium (Colace) 100 MG capsuleIndication s:Constipation Take 1 (one) capsule by mouth once daily as needed for Constipation. Narcotics can cause constipation. Please take while taking narcotic pain medications to avoid constipation. Do not take if having loose stools. 30 capsule 5 9:23 AM CDT 12/22/19 25 025 Discontin ued(Reord er) cyclobenzaprine (Flexeril) 10 MG tabletIndications :S/P total knee arthroplasty, right Take 1 (one) tablet by mouth at bedtime 21 tablet 01/11/20 25 025 Discontin ued(Reord er) Active Problems Problem Noted Date Diagnosed Date Primary osteoarthritis of right knee 09/05/2023 Primary localized osteoarthritis of right knee 0 09/05/2023 Encounters Date Type Department Care Team Description 02/25/2025 Orders Only [facility] - Orthopedic Surgery [address] [place] [phone] Enoch Lemos, CLEAT FEEDER-WEAVER AXMINSTER Left wrist pain 02/23/2025 8:01 AM CDT Anesthesia Event [facility] [address] [place] [phone] Alfonso Kline MD 02/23/2025 7:45 AM CDT - 02/23/2025 10:02 AM CDT Surgery [facility] [address] [place] [phone] Kayla Pryor MD PROXIMAL ROW CARPECTOMY, ANTERIOR INTEROSSEOUS NERVE AND POSTERIOR INTEROSSEOUS NERVE NEURECTOMIES, USE OF DERMAL ALLOGRAFT 02/23/2025 5:54 AM CDT - 02/23/2025 1:05 PM CDT Hospital Encounter [facility] [address] [place] [phone] Kayla Pryor MD Surgery General Discharge Disposition: Home or Self Care 02/23/2025 Travel 02/21/2025 Refill [facility] - Orthopedic Surgery [address] [place] [phone] Myah Chadwick RN MEDICATION REFILL 02/17/2025 Travel 01/19/2025 10:45 AM CDT Office Visit [facility] - Orthopedic Surgery [address] [place] [phone] Fabian Davis MD History of total left knee replacement (Primary Dx) 01/19/2025 10:24 AM CDT - 01/19/2025 11:59 PM CDT Hospital Encounter [facility] - Orthopedics [facility] [place] [address] Fabian Davis MD Discharge Disposition: Home or Self Care 01/19/2025 Travel 01/14/2025 Orders Only [facility] - Orthopedic Surgery [address] [place] [phone] Fabian Davis MD Hx of total knee replacement, left 01/10/2025 Refill [facility] - Orthopedic Surgery [address] [place] [phone] Myah Chadwick, STOCKING AND BOX SHOP SUPERVISOR REFILL 12/23/2024 Telephone [facility] - Orthopedic Surgery [address] [place] [phone] Myah Chadwick, ZAYNAB Med Question 12/20/2024 7:23 AM CDT Anesthesia Event [facility] [address] [place] [phone] Jackie Leon MD 12/20/2024 7:15 AM CDT - 12/20/2024 9:47 AM CDT Surgery [facility] [address] [place] [phone] Fabian Davis MD TOTAL KNEE ARTHROPLASTY- LEFT 12/20/2024 5:36 AM CDT - 12/21/2024 11:56 AM CDT Hospital Encounter [facility] 2 ORTHO/NEW VIS [address] [place] [phone] Fabian Davis MD Surgery General Discharge Disposition: Home or Self Care 12/20/2024 Travel 12/16/2024 1:00 PM CDT Office Visit [facility] - Orthopedic Surgery [address] [place] [phone] Kayla Pryor MD Slac (scapholunate advanced collapse) of wrist, left (Primary Dx) 12/16/2024 Travel 12/02/2024 7:00 AM CDT - 12/02/2024 11:59 PM CDT [facility] [address] [place] [address] Fabian Davis MD Discharge Disposition: Home or Self Care 12/02/2024 Travel from Last 3 Months Immunizations Immunization Administration Dates Next Due INFLUENZA VACCINE, TRIV. 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 Legal Sex Female 11:20 AM CDT Gender Identity Female 07/07/2023 10:34 PM DOUGH MIXING MACHINE OPERATOR Sexual Orientation Straight 07/07/2023 10 :34 PM DOUGH MIXING MACHINE OPERATOR Last Filed Vital Signs Vital Sign Reading Time Taken Comments Blood Pressure 101/66 02/23/2025 1:00 PM CDT Pulse 96 02/23/2025 11:57 AM CDT Temperature 36.7 C (98 F) 02/23/2025 11:57 AM CDT Respiratory Rate 18 02/23/2025 11:57 AM CDT Oxygen Saturation 94% 02/23/2025 11:57 AM CDT Inhaled Oxygen Concentration - - Weight 71.7 kg (158 lb) 02/23/2025 6:39 AM CDT Height 162.6 cm (5' 4) 02/23/2025 6:39 AM CDT Body Mass Index 27.12 02/23/2025 6:39 AM CDT Plan of Treatment Upcoming Encounters Date Type Department Care Team (Late st Contact Info) Description 03/10/2025 10:45 AM CDT Office Visit [facility] - Orthopedic Surgery [address] [place] [phone] Enoch Lemos, CLEAT FEEDER-WEAVER AXMINSTER [address] [place] [address] 04/26/2025 1:15 PM CDT Office Visit [facility] - Orthopedic Surgery [address] [place] [phone] Fabian Davis MD [address] [facility] [address] [place] [address] Health Maintenance Due Date Last Done Comments COLOGUARD (AGES 45-75) - COLON CA SCREENING 1963 COLON MONITORING 1963 COLONOSCOPY - COLON CA SCREENING 1963 CT COLONOGRAPHY - COLON CA SCREENING 1963 Colorectal Cancer Screening 1963 FIT - COLON CA SCREENING 1963 FLEX SIG - COLON CA SCREENING 1963 HIV SCREENING 1978 HEPATITIS C SCREENING 08/17/1981 DTAP/TDAP/TD VACCINES (1 - Tdap) 1982 PAP SMEAR 1984 PNEUMOCOCCAL VACCINE 50+ (1 of 1 - PCV) 2013 ZOSTER VACCINE (1 of 2) 2013 MAMMOGRAM 05/27/2019 05/27/2017, 05/05, 05/30/2015, Additional history exists COVID-19 VACCINE (2 - season) 2024 10/13/2020 INFLUENZA VACCINE (#1) 2025 7, 07/12/2015, 06/15/2014 SCREENING FOR DIABETES 12/22/2027 5, 12/02/2024, 12/02/2024, Additional history exists Respiratory Syncytial Virus (RSV) Vaccine Pt: or over 60 yrs (1 - 1-dose 75+ series) 2038 DEPRESSION SCREENING Completed 09/16/2024, 11/13/19 HEPATITIS B VACCINE Aged Out No longe [...] this topic Medical Devices Implanted Type Area Dog License Officer Supervisor Device Identifier Shelf Expiration Date Model / Serial / Lot Ins Tib 3-4 11mm Kn Xlpe Dsh Legion Implanted:Qty: 1 on 09/05/2023 by Fabian Davis MD at [facility] Right: Knee [employer] 05/31/2033 [id number] / / [id number] Cmpnt Fem Kn Rt 5 Crcte Rtn Legion Tapia Implanted:Qty: 1 on 09/05/2023 by Fabian Davis MD at [facility] Right: Knee [employer] 02/18/2032 [id number] / / [id number] Stem Tib 55mm 18mm Prfx Mtphsl Kn Implanted:Qty: 1 on 09/05/2023 by Fabian Davis MD at [facility] Right: Knee [employer] 05/20/2033 [id number] / / [id number] Bsplt Tib Legion 3 Kn Rt Tapia Por Implanted:Qty: 1 on 09/05/2023 by Fabian Davis MD at [facility] Right: Knee [employer] 08/14/2029 [id number] / / [id number] Screw Bsplt 20mm 6.5mm Gns2 Kn Tib Por Implanted:Qty: 2 on 09/05/2023 by Fabian Davis MD at [facility] Right: Knee [employer] 05/24/2033 [id number] / / [id number] Screw Bsplt 30mm 6.5mm Gns2 Kn Tib Por Implanted:Qty: 1 on 09/05/2023 by Fabian Davis MD at [facility] Right: Knee [employer] 02/25/2033 [id number] / / [id number] Screw Bsplt 25mm 6.5mm Gns2 Kn Tib Por Implanted:Qty: 1 on 09/05/2023 by Fabian Davis MD at [facility] Right: Knee [employer] 04/21/2033 [id number] / / [id number] Legion Deep Dished With Jrny Lock Articular Insert Implanted:Qty: 1 on 12/20/2024 by Fabian Davis MD at [facility] [employer] [id number] 03/25/2032 [id number] / / [id number] Left Size 3 Porous Tibia Baseplate W/Jrny Lock Implanted:Qty: 1 on 12/20/2024 by Fabian Davis MD at [facility] [employer] [id number] 08/24/2034 [id number] / / [id number] Legion Por Cr Tapia Fem L Sz 4 Implanted:Qty: 1 on 12/20/2024 by Fabian Davis MD at [facility] [employer] [id number] 07/12/2034 [id number] / / [id number] Graft Tissue Arthroflex Decellularized Implanted:Qty: 1 on 02/23/2025 by Kayla Pryor MD at [facility] Left: Wrist [employer] 04/21/2027 [id number] / / [place] Sut Cscr Fwr 2.2mm 2 Ndl Wire 4mm Implanted:Qty: 4 on 02/23/2025 by Kayla Pryor MD at [facility] Left: Wrist [employer] 06/03/2029 [id number] / / [id number] [place] Fx Crkscr Ft Fbrwr 3-0 Deanna 2 Ndl Implanted:Qty: 1 on 02/23/2025 by Kayla Pryor MD at [facility] Left: Wrist [employer] 11/01/2029 AR-[id number] / / [id number] Procedures Procedure Name Priority Date/Time Associated Diagnosis Comments CARDIAC RHYTHM STRIP ORDER 02/25/2025 7:47 PM CDT IMAGING/RADIOLOGY/X RAY RESULTS ORDER 02/25/2025 6:25 PM CDT XR WRIST LEFT 3VW OR MORE STAT 02/23/2025 12:20 PM CDT Post-operative state FL NATASHA SURGERY Routine 02/23/2025 11:07 AM CDT Pain LARYNGEAL MASK AIRWAY Routine 02/23/2025 9:03 AM CDT PERIPHERAL BLOCK Routine 02/23/2025 7:30 AM CDT RI REMOVAL OF PROX ROW CARPAL BONES 02/23/2025 6:40 AM CDT Diagnosis unknown Special Needs ## LATEX ALLERGY ## / NEEDS MINI C-ARM, MCGLAMREY RETRACTORS, ARTHREX DERMAL ALLOGRAFT--REP. (NEGRITA # [phone]) NOTIFIED PER OFFICE ([employer])--02/14 KW--REP EMAILED 02/17 WC--TIME CHANGE--REP. NOTIFIED PER OFFICE ([employer])--02/22 KW XR KNEE LEFT 4VW OR MORE Routine 01/19/2025 10:32 AM CDT Hx of total knee replacement, left CARDIAC RHYTHM STRIP ORDER 12/23/2024 6:29 PM CDT IMAGING/RADIOLOGY/X RAY RESULTS ORDER 12/23/2024 5:52 PM CDT BASIC METABOLIC PANEL (CALCIUM TOTAL) AM Draw 12/21/2024 6:09 AM CDT Primary osteoarthritis of right knee CBC W/O DIFFERENTIAL AM Draw 12/21/2024 6:08 AM CDT Primary osteoarthritis of right knee PERIPHERAL BLOCK Routine 12/20/2024 7:51 AM CDT ENDOTRACHEAL TUBE NOTE Routine 12/20/2024 7:40 AM CDT RI TOTAL KNEE REPLACEMENT 12/20/2024 6:40 AM CDT Diagnosis unknown Special Needs ## LETEX ALLERGY ## NEEDS SAAB AND NEPHEW--REP. (AARON Prado[employer]el # [phone]) NOTIFIED BY SURGEON PER OFFICE ([facility]) 0 10/13 TM -REP EMAILED 12/17 WC FRUCTOSAMINE Pre-Op 12/02/2024 7:15 AM CDT Preprocedural examination HEMOGLOBIN A1C Pre-Op 12/02/2024 7:15 AM CDT Preprocedural examination TRANSFERRIN Pre-Op 12/02/2024 7:15 AM CDT Preprocedural examination URINALYSIS REFLEX MICROSCOPIC REFLEX CULTURE Pre-Op 12/02/2024 7:15 AM CDT Preprocedural examination COMPREHENSIVE METABOLIC PANEL Pre-Op 12/02/2024 7:15 AM CDT Preprocedural examination CBC W AUTO DIFFERENTIAL Pre-Op 12/02/2024 7:15 AM CDT Preprocedural examination CULTURE MSSA/MRSA Pre-Op 12/02/2024 7:1 5 AM CDT Preprocedural examination from Last 3 Months Results * CARDIAC RHYTHM STRIP ORDER (02/25/2025 7:47 PM CDT) Only the most recent of2 resultswithin the time period is included. Narrative 02/25/2025 7:47 PM CDT Ordered by an unspecified provider. us Scanned Document CARDIAC SERVICES ORDERABLES Fin al Result * IMAGING/RADIOLOGY/XRAY RESULTS ORDER (02/25/2025 6:25 PM CDT) Only the most recent of2 resultswithin the time period is included. Anatomical Region Laterality Modality Other Narrative 02/25/2025 6:25 PM CDT Ordered by an unspecified provider. us Scanned Document IMAGING Final Result * XR Wrist Left 3Vw or More (02/23/2025 12:20 PM CDT) Anatomical Region Laterality Modality Wrist / Hand Radiographic Janel ging 02/23/2025 12:2 5 PM CDT Impressions 02/23/2025 12:26 PM CDT IMPRESSION: Postoperative changes in the left wrist. > Interpreting Provider: Gladys Munoz MD on 02/23/2025 12:26 PM Narrative 02/23/2025 12:26 PM CDT PROCEDURE: XR WRIST LEFT 3VW OR MORE DATE/TIME OF EXAM: 02/23/2025 12:21 PM CLINICAL INFORMATION: None relevant/not provided if blank. Indication: Z98.890: Post-operative state Additional History: COMPARISON: 07/23/2023 FINDINGS: There are findings of interval proximal carpal row resection. Suture anchors are seen. The patient is in splint. There is soft tissue swelling. Procedure Note Gladys Munoz MD - 02/23/2025 PROCEDURE: XR WRIST LEFT 3VW OR MORE DATE/TIME OF EXAM: 02/23/2025 12:21 PM CLINICAL INFORMATION: None relevant/not provided if blank. Indication: Z98.890: Post-operative state Additional History: COMPARISON: 07/23/2023 FINDINGS: There are findings of interval proximal carpal row resection. Suture anchors are seen. The patient is in splint. There is soft tissueswelling. IMPRESSION: Postoperative changes in the left wrist. > Interpreting Provider: Gladys Munoz MD on 02/23/2025 12:26 PM us Kayla Pryor MD DIAGNOSTIC IMAGING ORDERABLES F inal Result * FL Natasha Surgery (02/23/2025 11:07 AM CDT) Narrative [facility] - 02/23/2025 11:08 AM CDT For details of this study, please see the providers note. us Kayla Pryor MD FLUOROSCOPY ORDERABLES Final Re sult [facility] [address] [place] [address] * LARYNGEAL MASK AIRWAY (02/23/2025 9:03 AM CDT) Narrative Gita Torres APRN-CRNA - 02/23/2025 9:03 AM CDT Gita Torres APRN-CRNA 02/23/2025 9:03 AM LMA Placement Procedure/LDA Note: Patient Location: OR. Procedure: LMA Pretreatment: 100% O2 Induction: standard IV Patient position: supine. Mask Ventilation: not attempted Type: LMA Size: 4 Number of Attempts: 1. Cuff volume (mL): 5 Placement verified by: direct visualization, bilateral breath sounds, chest auscultation and CO2 monitor Dentition unchanged? Yes Staff Section Anesthesia Provider: Gita Torres APRN-CRNA, Performed the procedure us Alfonso Kline MD GENERAL ANESTHESIA ORDERABLES Final Result * Peripheral Nerve Block (02/23/2025 7:30 AM CDT) Narrative Peter Worley MD - 02/23/2025 7:30 AM CDT Peter Worley MD 02/23/2025 7:32 AM Peripheral Nerve Block Procedure: Peripheral Nerve Block Patient Location: Pre-op Preprocedure Section: Indications: at surgeon's request and procedure for pain. Pre-anesthetic Checklist: Patient identified, IV Checked, Site examined and clear, Risks and benefits discussed, Surgical consent verified, Monitors and equipment, Time-out performed, Informed consent obtained, Pre-op evaluation done, Questions answered/anesthesia questions answered, Allergies reviewed and Removal hand/wrist jewelry Monitors: BP, Pulse Ox, EKG and ETCO2. Patient Condition: sedated, meaningful contact maintained throughout procedure Patient Position: sitting Patient Sedated? Yes Sedation Type: mild Sedation Agents: midazolam (VERSED) injection - Intravenous 2 mg - 02/23/2025 7:24:00 AM Procedure Section Laterality: left Block Performed: Supraclavicular Prep: Chloraprep Strerile Field: gloves, mask and hat/cap Skin localized with: lidocaine (XYLOCAINE) 1 % injection - Infiltration 1 mL - 02/23/2025 7:25:00 AM Needle Type: Echogenic insulated Needle Gauge: 20 and 22 Needle Length: 80 mm Catheter? No Ultrasound Guided? Yes Technique: in plane Visualization: Preliminary scan performed, Important anatomical structures identified, Needle tip visualized throughout the procedure, Target identified, No intraneural or intravascular puncture occurred, Ultrasound image in chart, Local visualized surrounding nerve on ultrasound and Hydrodissection utilized Injection was made incrementally with constant monitoring and aspirations every 5 mL's Block Agents or Additives used? Yes Block agents used: bupivacaine 0.5% - EPINEPHrine 1:200,000 (PF) injection - Infiltration 30 mL - 02/23/2025 7:25:00 AM Procedure Tolerance: tolerated well and performed while the patient was sedated Assessment: partial and completed Procedure Start Time: 02/23/2025 7:24 AM. Procedure End Time: 02/23/2025 7:28 AM. Procedure Total Time: 4 minutes. Staff Section Anesthesia Provider: Pteer Worley MD, Performed the procedure Peter Worley MD GENERAL ANESTHESIA ORDERABLES E dited Result - Final * XR Knee Left 4Vw or More (01/19/2025 10:32 AM CDT) Anatomical Region Laterality Modality Lower Extremity Radiographic Janel ging 01/19/2025 10:3 3 AM CDT Impressions 01/19/2025 12:20 PM CDT IMPRESSION: Total knee arthroplasty is intact. Report dictated by Ravinder Worthy MD, (residential supervisor). I, Tony Ortega MD have personally reviewed and interpreted this examination/study. > Interpreting Provider: Tony Ortega MD on 01/19/2025 12:20 PM Narrative 01/19/2025 12:20 PM CDT PROCEDURE: XR KNEE LEFT 4VW OR MORE, DATE/TIME OF EXAM: 01/19/2025 10:32 AM, LOCATION [facility] INDICATION: Z96.652: Hx of total knee replacement, left COMPARISON: X-ray of the left knee 07/07/2024 FINDINGS: Total knee arthroplasty is intact without periprosthetic loosening. Small joint effusion Bone density and texture are normal. Procedure Note Tony Ortega MD - 01/19/2025 PROCEDURE: XR KNEE LEFT 4VW OR MORE, DATE/TIME OF EXAM: 0:32 AM, LOCATION [facility] INDICATION: Z96.652: Hx of total knee replacement, left COMPARISON: X-ray of the left knee 07/07/2024 FINDINGS: Total knee arthroplasty is intact without periprosthetic loosening.Small joint effusion Bone density and texture are normal. IMPRESSION: Total knee arthroplasty is intact. Report dictated by Ravinder Worthy MD, (residential supervisor). I, Tony Ortega MD have personally reviewed and interpreted this examination/study. > Interpreting Provider: Tony Ortega MD on 01/19/2025 12:20 PM Fabian Davis MD DIAGNOSTIC IMAGING ORDERABL ES Final Result * (ABNORMAL) BASIC METABOLIC PANEL (CALCIUM TOTAL) (12/21/2024 6:09 AM CDT) Glucose 138(H) 70 - 99 mg/dL 12/21/2024 7:40 AM CDT [facility] Sodium 139 136 - 145 mmol/L 12/21/2024 7:40 AM CDT [facility] Potassium 3.9 3.5 - 5.1 mmol/L 12/21/2024 7:40 AM CDT [facility] Chloride 107 98 - 107 mmol/L 12/21/2024 7:40 AM CDT [facility] CO2 24 22 - 29 mmol/L 12/21/2024 7:40 AM CDT [facility] Calcium 7.9(L) 8.4 - 10.4 mg/dL 12/21/2024 7:40 AM CDT [facility] Anion Gap 8 6 - 16 mmol/L 12/21/2024 7:40 AM CDT [facility] BUN 23 7 - 26 mg/dL 12/21/2024 7:40 AM CDT [facility] Creatinine 1.27(H) 0.57 - 1.11 mg/dL 12/21/2024 7:40 AM CDT [facility] eGFR by CKD-EPI 48(L) >=90 mL/min/1.7 3 m2 12/21/2024 7:40 AM T [facility] Blood BLOOD SPECIMEN / Unknown Lab Venipuncture / Unknown 12/21/2024 6:09 AM CDT 12/21/2024 7:03 AM CDT Fabian Davis MD LAB - CHEMISTRY ORDERABLES Final Result Performing Organization Address City/State/[facility] Co de Phone Number [facility] [address] [place], [place] [id number] * (ABNORMAL) CBC W/O DIFFERENTIAL (12/21/2024 6:08 AM CDT) WBC 12.8(H) 4.0 - 10.7 x10E9/L 12/21/2024 7:09 AM [facility] RBC Count 3.67(L) 3.90 - 5.20 x10E12/L 12/21/2024 7:09 AM [facility] Hemoglobin 10.5(L) 11.9 - 15.8 g/dL 12/21/2024 7:09 AM [facility] LABORATORY Hematocrit 32.7(L) 34.8 - 46.1 % 12/21/2024 7:09 AM [facility] MCV 89.1 80.0 - 98.0 fL 12/21/2024 7:09 AM [facility] MCH 28.6 26.7 - 33.6 pg 12/21/2024 7:09 AM [facility] MCHC 32.1 31.7 - 36.3 g/dL 12/21/2024 7:09 AM [facility] RDW-CV 13.4 11.3 - 14.8 % 12/21/2024 7:09 AM [facility] Platelet Count 208 150 - 420 x10E9/L 12/21/2024 7:09 AM [facility] MPV 10.3 7.8 - 11.4 fL 12/21/2024 7:09 AM [facility] Blood BLOOD SPECIMEN / Unknown Lab Venipuncture / Unknown 12/21/2024 6:08 AM CDT 12/21/2024 7:03 AM CDT us Fabian Davis MD LAB - HEMATOLOGY ORDERABLES Final Result [facility] [address] [place] [address] * Peripheral Nerve Block (12/20/2024 7:51 AM CDT) Narrative Adria Rodriguez MD - 12/20/2024 7:51 AM CDT Adria Rodriguez MD 12/20/2024 7:52 AM Peripheral Nerve Block Procedure: Peripheral Nerve Block Patient Location: Pre-op Preprocedure Section: Indications: at surgeon's request and postop pain management. Pre-anesthetic Checklist: Patient identified, IV Checked, Site examined and clear, Risks and benefits discussed, Surgical consent verified, Monitors and equipment, Time-out performed, Informed consent obtained, Pre-op evaluation done, Questions answered/anesthesia questions answered, Allergies reviewed and Removal hand/wrist jewelry Monitors: BP, Pulse Ox and EKG. Patient Condition: sedated, meaningful contact maintained throughout procedure Patient Position: supine Patient Sedated? Yes Sedation Type: mild Sedation Agents: midazolam (VERSED) injection - Intravenous 2 mg - 12/20/2024 7:00:00 AM Procedure Section Laterality: left Block Performed: adductor canal Prep: Chloraprep Strerile Field: gloves, mask and hat/cap Skin localized with: lidocaine (XYLOCAINE) 1 % injection - Infiltration 1 mL - 12/20/2024 7:00:00 AM Needle Type: Echogenic insultaed Needle Gauge: 21 Needle Length: 80 mm Needle Depth: 6 cm Catheter? No Ultrasound Guided? Yes Technique: in plane Visualization: Preliminary scan performed, Important anatomical structures identified, Target identified, Needle tip visualized throughout the procedure, No intraneural or intravascular puncture occurred, Hydrodissection utilized, Local visualized surrounding nerve on ultrasound and Ultrasound image in chart Injection was made incrementally with constant monitoring and aspirations every 5 mL's Block Agents or Additives used? Yes Block agents used: bupivacaine 0.5% - EPINEPHrine 1:200,000 (PF) injection - Infiltration 20 mL - 12/20/2024 7:03:00 AM Procedure Tolerance: tolerated well Assessment: completed Procedure Start Time: 12/20/2024 7:00 AM. Procedure End Time: 12/20/2024 7:03 AM. Procedure Total Time: 3 minutes. Staff Section Anesthesia Provider: Adria Rodriguez MD, Performed the procedure Jackie Leon MD GENERAL ANESTHESIA ORDERABL ES Final Result * ETT LINE PERFORMABLE (12/20/2024 7:40 AM CDT) Narrative Tushar Jean APRN-CRNA - 12/20/2024 7:40 AM CDT Tushar Jean APRN-CRNA 12/20/2024 7:40 AM Endotracheal Tube Placement: Patient Location: OR. Intubation Event Date/Time: 12/20/2024 7:31 AM Procedure: intubation ([id number]) Procedure Section: Sedation: under general anesthesia. Indications for Airway Management: anesthesia Induction: standard IV Patient Position: supine Mask Ventilation: easy. Blade Type: Juvencio Blade Size: 4 Laryngoscopy View: grade 3 (epiglottis) Intubation Adjuncts: stylet Tube: endotracheal tube Placement: oral Tube Size (MM): 7 Depth of Insertion (CM): 20 Measured From: teeth Cuff volume (mL): 4 Cuff Inflated With: air Number of Attempts: 1. Placement Verified By: direct visualization, bilateral breath sounds, chest auscultation and CO2 monitor Tube secured with: adhesive tape. Dentition unchanged? Yes Difficult Airway? No. Procedure Start Time: 12/20/2024 7:31 AM. Procedure End Time: 12/20/2024 7:32 AM. Procedure Total Time: 1 minutes. Staff Section Anesthesia Provider: Tushar Jean APRN-CRNA, Performed the procedure Jackie Leon MD GENERAL ANESTHESIA ORDERABL ES Final Result * CULTURE MSSA/MRSA (12/02/2024 7:15 AM CDT) Culture Negative for Staphylococcus aureus (MRSA/MSSA) 12/03/2024 12:51 PM CDT [facility] MICRO[facility]OLOG[facility] Microbiology SPECIMEN FROM NASAL FOSSAE / Unknown Collection / Unknown 12/02/2024 7:15 AM CDT 12/02/2024 7:30 AM CDT Fabian Davis MD LAB - MICROBIOLOGY ORDERABL ES Final Result [facility]CRO[facility] [address] [place] [address], [facility] [phone] * (ABNORMAL) URINALYSIS REFLEX MICROSCOPIC REFLEX CULTURE (12/02/2024 7:15 AM CDT) Color UA Colorless(A ) Yellow, Straw 12/02/2024 7:39 AM CDT [facility] Clarity UA Clear Clear 12/02/2024 7:39 AM CDT [facility] Glucose UA Normal Normal 12/02/2024 7:39 AM CDT [facility] Bilirubin UA Negative Negative 12/02/2024 7:39 AM CDT [facility] Ketone UA Negative Negative 12/02/2024 7:39 AM CDT [facility] Specific [place] UA 1.012 1.005 - 1.030 12/02/2024 7:39 AM CDT [facility] Blood UA Negative Negative 12/02/2024 7:39 AM CDT [facility] pH UA 5.5 5.0 - 9.0 pH 12/02/2024 7:39 AM CDT [facility] Protein UA 1+(A) Negative 12/02/2024 7:39 AM CDT [facility] Urobilinogen UA Normal Normal mg/dL 12/02/2024 7:39 AM CDT [facility] Nitrite UA Negative Negative 12/02/2024 7:39 AM CDT [facility] Leukocyte Esterase UA Negative Negative 12/02/2024 7:39 AM CDT [facility] RBC UA 0-2 0 - 5 # /hpf 12/02/2024 7:39 AM CDT [facility] WBC UA 0-5 0 - 5 # /hpf 12/02/2024 7:39 AM T [facility] Bacteria UA None Seen None Seen 12/02/2024 7:39 AM CDT [facility] Squamous Epithelial Cells 0-2 0 - 5 /hpf 12/02/2024 7:39 AM T [facility] Urine URINE SPECIMEN OBTAINED BY CLEAN CATCH PROCEDURE / Unknown Collection / Unknown 12/02/2024 7:15 AM CDT 12/02/2024 7:30 AM CDT [facility] - 12/02/2024 7:39 AM CDT Fabian Davis MD LAB - URINALYSIS ORDERABLES Final Result [facility] [address] [place] [id number] * TRANSFERRIN (12/02/2024 7:15 AM CDT) Transferrin 222 174 - 382 mg/dL 12/02/2024 7:50 AM CDT [facility] Blood BLOOD SPECIMEN / Unknown Venipuncture / Unknown 12/02/2024 7:15 AM CDT 12/02/2024 7:30 AM CDT Fabian Davis MD LAB - CHEMISTRY ORDERABLES Final Result Performing Organization Address [facility] Co de Phone Number [facility] [address] [place] [phone] * (ABNORMAL) HEMOGLOBIN A1C (12/02/2024 7:15 AM CDT) Hemoglobin A1c 5.8(H) <5.7 % 12/02/2024 7:53 AM CDT [facility] Estimated Average Glucose 120 mg/dL 12/02/2024 7:53 AM CDT [facility] Blood BLOOD SPECIMEN / Unknown Venipuncture / Unknown 12/02/2024 7:15 AM CDT 12/02/2024 7:30 AM CDT Narrative [facility] - 12/02/2024 7:53 AM CDT HbA1c Interpretation: Normal: < 5.7% Pre-diabetes: 5.7-6.4% Diabetes: Equal to or greater than 6.5% Test results diagnostic of diabetes should be repeated for confirmation. Treatment target values recommended by ADA and other clinical organizations should be used to evaluate metabolic control in patients. This test should not replace glucose testing for patients with Type 1 diabetes, pediatric patients, or women. Falsely low HbA1c results may be observed in patients with clinical conditions that shorten erythrocyte life span or decrease mean erythrocyte age such as the presence of unstable hemoglobin variants, elevated hemoglobin F level or other causes of hemolytic anemia. HbA1c may not accurately reflect glycemic control when clinical conditions that affect erythrocyte survival are present. Severe Iron deficiency anemia may yield falsely high results. Hemoglobin A1c assay should not be used to diagnose or monitor diabetes in patients with malignancy, recent blood transfusion, chronic kidney or liver disease. This method may yield falsely low results when hemoglobin (HbF) exceeds 5% in the specimen. The Mckeon Alinity assay for the measurement of HbA1c is a National Glycohemoglobin Standardization Program (NGSP) certified method. Fabian Davis MD LAB - CHEMISTRY ORDERABLES Final Result Performing Organization Address [facility] de Phone Number [facility] [address] [place] [phone] * FRUCTOSAMINE (12/02/2024 7:15 AM CDT) [facility] Fructosamine 205 205 - 285 umol/L 12/04/2024 4:20 PM CDT [facility] [facility] ([facility]) Comment: INTERPRETIVE INFORMATION: Fructosamine Variations in levels of serum proteins (albumin and immunoglobulins) may affect fructosamine results. Performed By: [facility] [address] [place] [address] Director Of Parks And Recreation: Judah Mejia MD, PhD CLIA Number: [id number] Blood BLOOD SPECIMEN / Unknown Venipuncture / Unknown 12/02/2024 7:15 AM CDT 12/02/2024 7:30 AM CDT Fabian Davis MD LAB - CHEMISTRY ORDERABLES Final Result Performing Organization Address [facility] de Phone Number [facility] [employer] [facility] ([facility]) [address] [place] [address] * CBC W AUTO DIFFERENTIAL (12/02/2024 7:15 AM CDT) Pathologist [facility] [place] WBC 7.4 4.0 - 10.7 x10E9/L 12/02/2024 7:38 AM CDT [facility] RBC Count 4.18 3.90 - 5.20 x10E12/L 12/02/2024 7:38 AM CDT [facility] Hemoglobin 12.1 11.9 - 15.8 g/dL 12/02/2024 7:38 AM CDT [facility] Hematocrit 36.3 34.8 - 46.1 % 12/02/2024 7:38 AM CDT [facility] MCV 86.8 80.0 - 98.0 fL 12/02/2024 7:38 AM CDT [facility] MCH 28.9 26.7 - 33.6 pg 12/02/2024 7:38 AM CDT [facility] MCHC 33.3 31.7 - 36.3 g/dL 12/02/2024 7:38 AM CDT [facility] RDW-CV 13.1 11.3 - 14.8 % 12/02/2024 7:38 AM CDT [facility] Platelet Count 276 150 - 420 x10E9/L 12/02/2024 7:38 AM CDT [facility] MPV 9.8 7.8 - 11.4 fL 12/02/2024 7:38 AM [facility] Neutrophil % 59.1 41.0 - 74.0 % 12/02/2024 7:38 AM CDT [facility] Lymphocyte % 26.3 17.0 - 47.0 % 12/02/2024 7:38 AM CDT [facility] Monocyte % 9.8 3.0 - 11.0 % 12/02/2024 7:38 AM CDT [facility] Eosinophil % 3.8 0.0 - 7.0 % 12/02/2024 7:38 AM CDT [facility] Basophil % 0.5 0.0 - 1.6 % 12/02/2024 7:38 AM CDT [facility] Immature Granulocytes % 0.5 0.0 - 1.0 % 12/02/2024 7:38 AM CDT [facility] Neutrophil Absolute 4.36 1.60 - 7.50 x10E9/L 12/02/2024 7:38 AM CDT [facility] Lymphocyte Absolute 1.94 1.00 - 4.40 x10E9/L 12/02/2024 7:38 AM CDT [facility] Monocyte Absolute 0.72 0.15 - 1.00 x10E9/L 12/02/2024 7:38 AM CDT [facility] Eosinophil Absolute 0.28 0.00 - 0.60 x10E9/L 12/02/2024 7:38 AM CDT [facility] Basophil Absolute 0.04 0.00 - 0.13 x10E9/L 12/02/2024 7:38 AM [facility] Blood BLOOD SPECIMEN / Unknown Venipuncture / Unknown 12/02/2024 7:15 AM CDT 12/02/2024 7:30 AM CDT us Fabian Davis MD LAB - HEMATOLOGY ORDERABLES Final Result [facility] [address] [place] [address] * (ABNORMAL) COMPREHENSIVE METABOLIC PANEL (12/02/2024 7:15 AM CDT) Glucose 119(H) 70 - 99 mg/dL 12/02/2024 7:51 AM [facility] Sodium 139 136 - 145 mmol/L 12/02/2024 7:51 AM [facility] Potassium 4.0 3.5 - 5.1 mmol/L 12/02/2024 7:51 AM [facility] Chloride 110(H) 98 - 107 mmol/L 12/02/2024 7:51 AM [facility] CO2 23 22 - 29 mmol/L 12/02/2024 7:51 AM [facility] Calcium 8.6 8.4 - 10.4 mg/dL 12/02/2024 7:51 AM [facility] Anion Gap 6 6 - 16 mmol/L 12/02/2024 7:51 AM [facility] BUN 28(H) 7 - 26 mg/dL 12/02/2024 7:51 AM [facility] Creatinine 1.34(H) 0.57 - 1.11 mg/dL 12/02/2024 7:51 AM [facility] Alkaline Phosphatase 84 40 - 150 U/L 12/02/2024 7:51 AM [facility] ALT 17 6 - 57 U/L 12/02/2024 7:51 AM [facility] AST 19 10 - 48 U/L 12/02/2024 7:51 AM [facility] Protein Total 6.5 6.4 - 8.3 gm/dL 12/02/2024 7:51 AM CDT [facility] Albumin 3.6 3.4 - 5.0 gm/dL 12/02/2024 7:51 AM CDT [facility] Bilirubin Total 0.4 0.2 - 1.2 mg/dL 12/02/2024 7:51 AM CDT [facility] eGFR by CKD-EPI 45(L) >=90 mL/min/1.7 3 m2 12/02/2024 7:51 AM CDT [facility] Blood BLOOD SPECIMEN / Unknown Venipuncture / Unknown 12/02/2024 7:15 AM CDT 12/02/2024 7:30 AM CDT Fabian Davis MD LAB - CHEMISTRY ORDERABLES Final Result [facility] [address] [place] [address] from Last 3 Months Insurance [facility] Advance Directives * Full Code (Latest Code Status on File) Date Activated Date Inactivated Comments 12/20/2024 10:49 AM 12/21/2024 1:02 PM * Full Code Date Activated Date Inactivated Comments 09/05/2023 2:40 PM 09/06/2023 3:05 PM * Full Code Date Activated Date Inactivated Comments 09/05/2023 1:07 PM 09/05/2023 2:40 PM Care Teams Database Modeler Relationship Specialty Start Date End Date Shanae Peralta DO [address] [place] [address] PCP - General Family Medicine 12/02/24
--- OUTSIDE RECORDS SUMMARY | 2025-02-28 17:11 | XMS_ITS | Patient Health Record ---
Author Organization [facility] Address [address] [facility] [address] [place] [address] Care Team Providers Care Administrative Manager Name Role Phone Umang Sheppard Primary Care Provider Unavailabl e Allergies No Known Allergies Reason For Referral No Information Medications Medication SIG (Take, Route, Frequency, Duration) [...] 1 tablet Orally Once a day Active Problems Problem Type SNOMED Code ICD Code Onset Dates Problem Status W/U Status Risk Notes Problem Restless legs syndrome (G25.81) Active confirmed Problem Pain co-occurrent and due to varicose veins of bilateral legs ([id number] 9100) Varicose veins of bilateral lower extremities with pain (I83.813) Active confirmed Plan Of Treatment No Information Insurance Providers Payer Name Payer Address Payer Phone Subscriber Number Group Number Insured Name Patient Relationship to Insured Coverage Start Date Coverage End Date [employer] [address] [address] [place] [address] [id number] Sharon Kim Self - patient is the insured Medical (General) History Medical History History ICD Code HTN
--- OUTSIDE RECORDS SUMMARY | 2025-02-28 17:11 | XMS_ITS ---
Author Name Auto Generated, Auto Generated Organization [facility] Address [address] [facility] [place] [address] Phone [phone] Care Team Providers Care Retail Sales Associate Name Role Phone Shanae Peralta Unavailable [phone] Fabian Davis Unavailable Functional Status No Results Mental Status No Results Allergies and Intolerances Name Onset Date Reaction Severity Latex (Allergy) FriDecember 20 16:51:00 EDT 2024 Sulfa (Sulfonamide Antibiotics) (Allergy) Fri 16:51:00 EDT 2024 ciprofloxacin (Allergy) FriDecember 20 16:51:00 EDT 2024 adhesive (Allergy) FriDecember 20 16:51:00 EDT 2024 Betadine (Allergy) FriDecember 20 16:51:00 EDT 2024 Penicillins (Allergy) FriDecember 20 16:51:00 EDT 20 25 amoxicillin (Allergy) FriDecember 20 16:51:00 EDT 20 25 Encounters Program Name Primary Diagnosis Admission Date/Time Dis charge Date/Time Home Care FriDecember 21 20:00 :00 EDT 2024Jan 12 19:59:59 EDT 2024 Medications Medication Directions Start Date End Date Flexeril 10 mg tablet 1 TABLET Oral PRN (Max 1 Doses) 1 TABLET AT BEDTIME FriDecember 22 01:00:00 EDT 2024Jan 12 01:00:00 EDT 2024 Colace 100 mg capsule 1 tablet CAPSULE O ral PRN (Max 1 Doses) 1 TABLET NEEDED FOR CONSTIPATION FriDecember 22 01:00:00 EDT 2024Jan 12 01:00:00 EDT 2024 oxyCODONE 5 mg tablet 1 TABLET Oral PRN (Max 1 Doses) 1 TABLET EVERY 6 HOURS NEEDED FOR PAIN FriDecember 22:00:00 EDT 2024Jan 12:00:00 EDT 2024 Miralax 17 gram oral powder packet 17G POWDER IN PACKET (EA) Oral PRN (Max 1 Doses) NEEDED FOR CONSTIPATION FriDecember 22:00:00 EDT 2024Jan 12:00:00 EDT 2024 senna 8.6 mg tablet 1 tablet TABLET Oral PRN (Max 1 Doses) NEEDED FOR CONSTIPATION FriDecember 22:00:00 EDT 2024Jan 12:00:00 EDT 2024 acetaminophen Extra Strength 500 mg tablet 2 tablets TABLET Oral PRN (Max 2 Doses) TAKE 2 TABLETS THREE TIMES PER DAY NEEDED FOR PAIN FriDecember 22:00:00 EDT 2024Jan 12:00:00 EDT 2024 Lexapro 20 mg tablet 1 tablet TABLET Ora l Every 1 Day FriDecember 22:00:00 EDT 2024Jan 12:00:00 EDT 2024 loratadine 10 mg tablet 1 tablet TABLET Oral Every 1 Day FriDecember 22:00:00 EDT 2024Jan 12 01:00:00 EDT 2024 losartan 100 mg tablet 1 TABLET TABLET O ral Every 1 Day FriDecember 22:00:00 EDT 2024Jan 12:00:00 EDT 2024 meloxicam 7.5 mg tablet 1 TABLET TABLET Oral 2 Times Daily FriDecember 22:00:00 EDT 2024Jan 12:00:00 EDT 2024 Toprol XL 25 mg tablet,extended release 1 TABLET TABLET, EXTENDED RELEASE 24 HR Oral Every 1 Day FriDecember 22:00:00 EDT 2024Jan 12:00:00 EDT 2024 metoprolol succinate ER 25 mg tablet,extended release 24 hr 1 TABLET, EXTENDED RELEASE 24 HR Oral Every 1 Day FriDecember 22:00:00 EDT 2024Jan 12 01:00:00 EDT 2024 Lyrica 50 mg capsule 1 CAPSULE Oral 2 Ti mes Daily FriDecember 22:00:00 EDT 2024Jan 12:00:00 EDT 2024 Crestor 5 mg tablet 1 TABLET TABLET Oral Every 1 Day FriDecember 22:00:00 EDT 2024Jan 12 01:00:00 EDT 2024 Cozaar 25 mg tablet 1 TABLET TABLET Oral Every 1 Day FriDecember 22:00:00 EDT 2024Jan 12 01:00:00 EDT 2024 Ambien 10 mg tablet 1 TABLET TABLET Oral Every 1 Day FriDecember 22:00:00 EDT 2024Jan 12 01:00:00 EDT 2024 Aspirin Low-Strength 81 mg chewable tablet 1 TABLET TABLET,CHEWABLE Oral 2 Times Daily FriDecember 22 01:00:00 EDT 2024Jan 12 01:00:00 EDT 2024 Problems Active Concerns * Aftercare following joint replacement surgery* Code: * Start Date: FriDecember 21 00:00:00 EDT 2024 * End Date: * Text: * custodial (current) use of aspirin* Code: * Start Date: FriDecember 22 00:00:00 EDT 2024 * End Date: * Text: * Sleep apnea, unspecified* Code: * Start Date: FriDecember 22 00:00:00 EDT 2024 * End Date: * Text: * Essential (primary) hypertension* Code: * Start Date: FriDecember 22 00:00:00 EDT 2024 * End Date: * Text: * Presence of left artificial knee joint* Code: * Start Date: FriDecember 22 00:00:00 EDT 2024 * End Date: * Text: Reason for Referral
--- OUTSIDE RECORDS SUMMARY | 2025-02-28 17:11 | XMS_ITS | Clinical Summary ---
Author Organization [facility] Address [address] [place] [phone] Phone Care Team Providers Care High [address] Justice Name Role Phone Umang Sheppard MD Primary Care Provider [phone] Allergies Active Allergy Reactions Criticality Noted Date Comments Cephalexin 04/28/2019 Ciprofloxacin 04/28/2019 Sulfa Antibiotics 04/28/2019 Medications losartan (COZAAR) 25 MG tablet 1 tab/cap [...] here 03/02/2012 Chronic kidney disease 03/02/2012 Immunizations Immunization Administration Dates Next Due Influenza TIV (IM) 09/18/2016,07/12/2015, 014 MMR 01/05/2019 Moderna Sars-cov-2 Vaccination 10/13/2020 Sars-cov-2, Unspecified 10/13/2020 Family History Medical History Relation Comments Kidney disease Neg Hx Kidney stone Neg Hx Social History Tobacco Use Types Packs/Day Years Used Date Smoking Tobacco: Never Smokeless Tobacco: Never Alcohol Use Standard Drinks/Week Comments No 0 (1 standard drink = 0.6 oz pur e alcohol) Comments Unknown Sex and Gender Information Value Date Recorded Sex Assigned at Not on file Legal Sex Female 7:42 AM [facility] Gender Identity Not on file Sexual Orientation [...] 3:03 PM CDT Height 165.1 cm (5' 5) 03/11/2022 3:03 PM CDT Body Mass Index 27.79 03/11/2022 3:03 PM CDT Plan of Treatment Health Maintenance Due Date Last Done Comments COVID-19 Vaccine (2023-2 5 season) 2024 10/13/2020, 10/13/2020 Influenza Vaccine (#1) 2025 7, 07/12/2015, 06/15/2014 [place] [address] Relationship Specialty Start Date End Date Umang Sheppard MD PCP - General Internal Medicine 04/28/19
[2025-02-28 17:24] VITALS: BP 135/63; PULSE 86; RESP 18; TEMP 36.4; O2SAT 100
--- NOTE | 2025-02-28 17:33 | ED_ITS ---
HPI - Extremity Injury (Upper) General Chief Complaint: Extremity Injury, Upper <Viktoria Young APRN - Last Filed: 02/28/25 17:48> Stated Complaint: L wrist post op complication <Viktoria Young APRN - Last Filed: 02/28 17:48> Time Seen by Provider: 02/28/25 17:20 <Viktoria Young APRN - Last Filed: 02/28/25 17:48> Focused HPI: Patient is a 59-year-old female who presents to the ER with left arm swelling, bruising, and mild discomfort following left hand surgery. She reports last week she has surgery to treat slack wrist.Patient reports her hand surgeon is at [facility] in [place]. She denies any numbness/tingling, decreased range of motion, or recent fevers. Patient or sys a history of high blood pressure, hyperlipidemia, and osteoarthritis. GENERAL: Well-appearing, well-nourished, and in no acute distress. HEAD: Normocephalic, atraumatic. CHEST: Clear to auscultation. ?No respiratory distress. HEART: Regular rate and rhythm.? NEURO: ?Alert and oriented x3. Patient screened in triage and initial orders placed.? ?Additional care and disposition to be based upon?diagnostic testing and treatment. <Viktoria Young APRN - Last Filed: 02/28/25 17:48> History of Present Illness HPI narrative: per HPI <Joi Courtney MD - Last Filed: 03/01/25 01:38> Related Data Home Medications: Home Medications ?Medication ?Instructions ?Recorded ?Confirmed ?Last Taken ?Type loratadine 10 mg tablet 10 mg PO DAILY 09/02/24 11/02/24 10/21/24 History meloxicam 7.5 mg tablet 7.5 mg PO DAILY PRN arthritis 09/02/24 11/02/24 Unknown History <Viktoria Young APRN - Last Filed: 02/28/25 17:48> Allergies/Adverse Reactions: Allergies Allergy/AdvReac Type Severity Reaction Status Date / Time amoxicillin Allergy Unknown unknown Verified 11/02/24 15:27 cephalexin Allergy Unknown Unknown Verified 11/02/24 15:27 ciprofloxacin Allergy Unknown Unknown Verified 11/02/24 15:27 Penicillins Allergy Unknown Unknown Verified 11/02/24 15:27 Sulfa (Sulfonamide Allergy Unknown Unknown Verified 11/02/24 15:27 Antibiotics) Latex, Natural Rubber AdvReac Severe Blister Verified 11/02/24 15:27 <Viktoria Young APRN - Last Filed: 02/28/25 17:48> Review of Systems Review of Systems: All systems reviewed & are unremarkable except as noted in HPI and below <Joi Courtney MD - Last Filed: 03/01/25 01:38> [facility] Past Medical History Medical History: Medical History Stage 3a chronic kidney disease Essential (primary) hypertension Glomerulonephritis pauci-immune 04/12 Adjustment disorder Vitamin D deficiency DANIELLA (obstructive sleep apnea) <Viktoria Young APRN - Last Filed: 02/28/25 17:48> Surgical History Surgical History: Surgical History History of arthroplasty of right knee 09/2023 History of 2003 <Viktoria Young APRN - Last Filed: 02/28/25 17:48> Family History Family History: Family History Father Leukemia, chronic Diabetes mellitus Heart disease Cerebrovascular accident Mother Heart disease Hypertension Thyroid disorder Diabetes mellitus Other Arthritis Cancer Glaucoma Neuropathy <Viktoria Young APRN - Last Filed: 02/28/25 17:48> Social History Social History: Social History Smoking status: Never smoker Second hand tobacco smoke exposure: Yes Alcohol intake: current Drinks per week: 2 Alcohol use details: sweet wine Substance use: never Substance use type: does not use Do You Feel Safe in your Home?: Yes Lack of Transportation: No Lack of Food: Never True Current Housing: I Have Housing Concerned About Future Housing: Decline to Answer Difficulty Paying Gas/Electric Bills: Decline to Answer Difficulty Paying for Meds: Decline to Answer Currently Unemployed: Decline to Answer Education: Decline to Answer Difficulty w/ Childcare or Family Care: Decline to Answer Living arrangements: with family Occupation/Education: occupation 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 EYES: EOMI, conjunctiva normal ENT: Hearing grossly intact LUNGS: Nonlabored breathing. HEART: [Regular rate and rhythm], capillary refill less than 2 seconds all fingers ABD: [Soft], [nontender to palpation] EXT: Normal range of motion; some bruising to knuckles SKIN: See above NEURO: [Alert and oriented x 3. No gross focal sensory or strength deficits.] PSYCH: Normal affect <Joi Courtney MD - Last Filed: 03/01/25 01:38> Course Vital Signs Vital signs: Vital Signs Temperature 97.6 F 02/28/25 17:24 Pulse Rate 86 02/28/25 17:24 Respiratory Rate 18 02/28/25 17:24 Blood Pressure 135/63 02/28/25 17:24 Pulse Oximetry 100 02/28/25 17:24 Temperature 98.3 F 02/28/25 22:28 Pulse Rate 68 02/28/25 22:28 Respiratory Rate 16 02/28/25 22:28 Blood Pressure 120/76 02/28/25 22:28 Pulse Oximetry 94 02/28/25 22:28 <Viktoria Young, [employer] - Last Filed: 02/28/25 17:48> Vital Signs Temperature 97.6 F 02/28/25 17:24 Pulse Rate 86 02/28/25 17:24 Respiratory Rate 18 02/28/25 17:24 Blood Pressure 135/63 02/28/25 17:24 Pulse Oximetry 100 02/28/25 17:24 Temperature 98.3 F 02/28/25 22:28 Pulse Rate 68 02/28/25 22:28 Respiratory Rate 16 02/28/25 22:28 Blood Pressure 120/76 02/28/25 22:28 Pulse Oximetry 94 02/28/25 22:28 <Joi Courtney MD - Last Filed: 03/01/25 01:38> MDM - Extremity Injury (Upper) MDM Narrative Medical decision making narrative: Patient presents with concern that her splint was on too tight, she is concerned that her fingers are turning colors. Had a recent surgery several days ago. She is extremely well-appearing here, she has normal range of motion to her fingers, there is some bruising on the knuckles which seemed appropriate given her recent surgery, there was also concern about an orange/yellow tinge which I have determined to be from the Betadine prepped and cleaned off easily with alcohol swab. She has great capillary refill, I have rewrapped the splint, and taught patient how to assess for tightness as well as discussed return precautions. Patient has the upcoming appointment with her surgeon in the next few days and is happy with outpatient management at this time. <Joi Courtney MD - Last Filed: 03/01/25 01:38> Discharge Plan Discharge Clinical Impression: Post-operative state <Viktoria Young APRN - Last Filed: 02/28/25 17:48> Patient Disposition: Home <Viktoria Young APRN - Last Filed: 02/28/25 17:48> Condition: Stable <Viktoria Young APRN - Last Filed: 02/28/25 17:48> Instructions: Splint Care (ED) <Viktoria Young APRN - Last Filed: 02/28/25 17:48> Additional Instructions: Continue elevating your arm, follow up with your surgeon as scheduled. If you start noticing numbness or tingling to your fingers, if your finger tips start turning white, or you have trouble moving them, or anything else concerning, you can always return to the emergency room. <TRIPP Grant Last Filed: 02/28/25 17:48> Patient Language: [place] Arabian <Viktoria Young APRN - Last Filed: 02/28/25 17:48> Prescriptions: No Action meloxicam 7.5 mg tablet 7.5 mg PO DAILY PRN (Reason: arthritis) loratadine 10 mg tablet 10 mg PO DAILY escitalopram oxalate 20 mg tablet 20 mg PO DAILY Qty: 90 3RF metoprolol succinate 25 mg tablet extended release 24 hr 25 mg PO DAILY Qty: 90 1RF rosuvastatin 5 mg tablet 5 mg PO DAILY Qty: 90 1RF losartan 100 mg tablet 100 mg PO DAILY Qty: 90 1RF <Viktoria Young APRN - Last Filed: 02/28/25 17:48> Follow-up/Referrals: Shanae Peralta DO [Primary Care Provider] - <Viktoria Young APRN - Last Filed: 02/28/25 17:48>
[2025-02-28 22:02] VITALS: BP 147/93; PULSE 79; RESP 17; O2SAT 100
--- OUTSIDE RECORDS SUMMARY | 2025-02-28 22:14 | XMS_ITS | Clinical Summary ---
Author Organization [facility] Address [address] [place] [id number] Phone Care Team Providers Care Tax Map Technician Name Role Phone Umang Sheppard MD Primary Care Provider [phone] Allergies Active Allergy Reactions Criticality Noted Date [...] on file Legal Sex Female 7:42 AM [facility] Gender Identity Not on file Sexual [...] (#1) 2025 7, 07/12/2015, 06/15/2014 Insurance [employer] Care Teams Tax Map Technician Relationship Specialty Start Date End Date Umang Sheppard MD PCP - General Internal Medicine 04/28/19
--- OUTSIDE RECORDS SUMMARY | 2025-02-28 22:14 | XMS_ITS | Encounter Summary ---
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 Legal Sex Female 11:20 AM CDT Gender Identity Female 07/07/2023 10:34 PM [employer] ASSOCIATE Sexual Orientation Straight 07/07/2023 10 :34 PM 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 ASSOCIATE documented as of this encounter Plan of Treatment Upcoming Encounters Date Type Department Care Team (Late st Contact Info) Description 03/10/2025 10:45 AM CDT Office Visit [facility] - [facility] Surgery [address] [place] [address] Enoch Lemos, CHIEF TRANSFER AND PUMPHOUSE OPERATOR-ATTIC BLOWER [address] [facility] [address] [place] [address] 04/26/2025 1:15 PM CDT Office Visit [facility] - [facility] Surgery [address] [place] [address] Fabian Davis MD [address] [facility] [address] [place] [address] Scheduled Orders Name Type Priority Associated Diagnoses Orde r Schedule XR Wrist Left 3Vw or More Imaging Routine Left wrist pain 1 Occurrences starting 02/25/2025 until 02/25/2026 documented as of this encounter Visit Diagnoses Diagnosis Left wrist pain- Primary Pain in joint, forearm documented in this encounter Care Teams Tie Cutter Relationship Specialty Start Date End Date Shanae Peralta DO [address] [place] [address] PCP - General Family Medicine 12/02/24 documented as of this encounter
--- OUTSIDE RECORDS SUMMARY | 2025-02-28 22:14 | XMS_ITS | Clinical Summary ---
Author Organization [facility] Address [address] [place] [address] Care Team Providers Care Product Design Manager Name Role Phone Shanae Peralta DO Primary Care Provider [phone] Source Comments [facility],non-owned Affiliates and Associated Physician Practices is amultiple site organization consisting of ambulatory clinics and hospital sitesin [place], [place], [place] and [place]. This disclosure is being madepursuant to the Care Everywhere program and may not contain all information available regarding this patient. Last updated 18.[facility] Allergies Active Allergy Reactions Criticality Noted Date [...] tablet 1 02/22/20 25 Active HYDROcodone-aceta minophen ([place]) 5-325 MG tabletIndications :Post-operative state Take 1 [...] Department Care Team Description 02/25/2025 Orders Only [facility] - Orthopedic Surgery [address] [place] [phone] Enoch Lemos, FIBERGLASS DOWEL DRAWING OPERATOR-MENTAL HEALTH PROGRAM MANAGER Left wrist pain 02/23/2025 8:01 AM CDT Anesthesia Event [facility] [address] [place] [phone] Alfonso Kline MD 02/23/2025 7:45 AM CDT - 02/23/2025 10:[address] [facility] [address] [place] [phone] Kayla Pryor MD PROXIMAL ROW CARPECTOMY, ANTERIOR INTEROSSEOUS NERVE AND POSTERIOR INTEROSSEOUS NERVE NEURECTOMIES, USE OF DERMAL ALLOGRAFT 02/23/2025 5:54 AM CDT - 02/23/2025 1:05 PM CDT Hospital Encounter [facility] [address] [place] [address] Kayla Pryor MD Surgery General Discharge Disposition: Home or Self Care 02/23/2025 Travel 02/21/2025 Refill [facility] - Orthopedic Surgery [address] [place] [phone] Myah Chadwick RN MEDICATION REFILL 02/17/2025 Travel 01/19/2025 10:45 AM CDT Office Visit [facility] - Orthopedic Surgery [address] [place] [phone] Fabian Davis MD History of total left knee replacement (Primary Dx) 01/19/2025 10:24 AM CDT - 01/19/2025 11:59 PM CDT Hospital Encounter [facility] - Orthopedics [facility] [place] [address] Fabian Davis MD Discharge Disposition: Home or Self Care 01/19/2025 Travel 01/14/2025 Orders Only [facility] - Orthopedic Surgery [address] [place] [phone] Fabian Davis MD Hx of total knee replacement, left 01/10/2025 Refill [facility] - Orthopedic Surgery [address] [place] [phone] Myah Chadwick, COUNSELOR AID REFILL 12/23/2024 Telephone [facility] - Orthopedic Surgery [address] [place] [phone] Myah Chadwick, ZAYNAB Med Question 12/20/2024 7:23 AM CDT Anesthesia Event [facility] [address] [place] [phone] Jackie Leon MD 12/20/2024 7:15 AM CDT - 12/20/2024 9:[address] [facility] [address] [place] [phone] Fabian Davis MD TOTAL KNEE ARTHROPLASTY- LEFT 12/20/2024 5:36 AM CDT - 12/21/2024 11:56 AM CDT Hospital Encounter [facility] 2 ORTHO/NEW [place]IS [address] [place] [phone] Fabian Davis MD Surgery General Discharge Disposition: Home or Self Care 12/20/2024 Travel 12/16/2024 1:00 PM CDT Office Visit [facility] - Orthopedic Surgery [address] [place] [phone] Kayla Pryor MD Slac (scapholunate advanced collapse) of wrist, left (Primary Dx) 12/16/2024 Travel 12/02/2024 7:00 AM CDT - 12/02/2024 11:59 PM CDT [facility] [address] [place] [address] Fabian Davis MD Discharge Disposition: Home or [...] Sex Assigned at Female 07/07/2023 10:34 PM DRAFTER Legal Sex Female 11:20 AM CDT Gender Identity Female 07/07/2023 10:34 PM DRAFTER Sexual Orientation Straight 07/07/2023 10 :34 PM DRAFTER Last Filed Vital Signs Vital Sign Reading [...] Description 03/10/2025 10:45 AM CDT Office Visit [facility] - Orthopedic Surgery [address] [place] [phone] Enoch Lemos, FIBERGLASS DOWEL DRAWING OPERATOR-MENTAL HEALTH PROGRAM MANAGER [address] [facility] [address] [place] [address] 04/26/2025 1:15 PM CDT Office Visit [facility] - Orthopedic Surgery [address] [place] [phone] Fabian Davis MD [address] [facility] [address] [place] [address] Health Maintenance Due Date Last Done Comments [...] this topic Medical Devices Implanted Type Area Laundry Press Operator Device Identifier Shelf Expiration Date Model / Serial / Lot Ins Tib 3-4 11mm Kn Xlpe Dsh Legion Implanted:Qty: 1 on 09/05/2023 by Fabian Davis MD at [facility] Right: Knee [employer] 05/31/2033 [id number] / / [id number] Cmpnt Fem Kn Rt 5 Crcte Rtn Legion Tapia Implanted:Qty: 1 on 09/05/2023 by Fabian Davis MD at [facility] Right: Knee [employer] 02/18/2032 [id number] / / [id number] Stem Tib 55mm 18mm Prfx Mtphsl Kn Implanted:Qty: 1 on 09/05/2023 by Fabian Davis MD at [facility] Right: Knee [employer] 05/20/2033 [id number] / / [id number] Bsplt Tib Legion 3 Kn Rt Tapia Por Implanted:Qty: 1 on 09/05/2023 by Fabian Davis MD at [facility] Right: Knee [employer] 08/14/2029 [id number] / / [id number] Screw Bsplt 20mm 6.5mm Gns2 Kn Tib Por Implanted:Qty: 2 on 09/05/2023 by Fabian Davis MD at [facility] Right: Knee [employer] 05/24/2033 [id number] / / [id number] Screw Bsplt 30mm 6.5mm Gns2 Kn Tib Por Implanted:Qty: 1 on 09/05/2023 by Fabian Davis MD at [facility] Right: Knee [employer] 02/25/2033 [id number] / / [id number] Screw Bsplt 25mm 6.5mm Gns2 Kn Tib Por Implanted:Qty: 1 on 09/05/2023 by Fabian Davis MD at [facility] Right: Knee [employer] 04/21/2033 [id number] / / [id number] Legion Deep Dished With Jrny Lock Articular Insert Implanted:Qty: 1 on 12/20/2024 by Fabian Davis MD at [facility] [employer] [id number] 03/25/2032 [id number] / / [id number] Left Size 3 Porous Tibia Baseplate W/Jrny Lock Implanted:Qty: 1 on 12/20/2024 by Fabian Davis MD at [facility] [employer] [id number] 08/24/2034 [id number] / / [id number] Legion Por Cr Tapia Fem L Sz 4 Implanted:Qty: 1 on 12/20/2024 by Fabian Davis MD at [facility] [employer] [id number] 07/12/2034 [id number] / / [id number] Graft Tissue Arthroflex Decellularized Implanted:Qty: 1 on 02/23/2025 by Kayla Pryor MD at [facility] Left: Wrist [employer] 04/21/2027 [id number] / / [place] Sut Cscr Fwr 2.2mm 2 Ndl Wire 4mm Implanted:Qty: 4 on 02/23/2025 by Kayla Pryor MD at [facility] Left: Wrist [employer] 06/03/2029 AR-[id number] / / [id number] [place] Fx Crkscr Ft Fbrwr 3-0 Deanna 2 Ndl Implanted:Qty: 1 on 02/23/2025 by Kayla Pryor MD at [facility] Left: Wrist [employer] 11/01/2029 AR-[id number] / / [id number] Procedures Procedure Name Priority Date/Time Associated Diagnosis Comments CARDIAC RHYTHM STRIP ORDER 02/25/2025 7:47 PM CDT IMAGING/RADIOLOGY/X RAY RESULTS ORDER 02/25/2025 6:25 PM CDT XR WRIST LEFT 3VW OR MORE STAT 02/23/2025 12:20 PM CDT Post-operative state FL NATASHA SURGERY Routine 02/23/2025 11:07 AM CDT Pain LARYNGEAL MASK AIRWAY Routine 02/23/2025 9:03 AM CDT PERIPHERAL BLOCK Routine 02/23/2025 7:30 AM CDT ID REMOVAL OF PROX ROW CARPAL BONES 02/23/2025 6:40 AM CDT Diagnosis unknown Special Needs ## LATEX ALLERGY ## / NEEDS MINI C-ARM, MCGLAMREY RETRACTORS, ARTHREX DERMAL ALLOGRAFT--REP. (NEGRITA # [phone]) NOTIFIED PER OFFICE ([employer])--02/14 KW--REP EMAILED 02/17 WC--TIME CHANGE--REP. NOTIFIED PER OFFICE ([employer])--02/22 KW XR KNEE LEFT 4VW OR MORE [...] TUBE NOTE Routine 12/20/2024 7:40 AM CDT ID TOTAL KNEE REPLACEMENT 12/20/2024 6:40 AM CDT Diagnosis unknown Special Needs ## LETEX ALLERGY ## NEEDS SAAB AND NEPHEW--REP. (AARON PradoKel # [phone]) NOTIFIED BY SURGEON PER OFFICE ([facility]OUCHRA) 0 [...] Natasha Surgery (02/23/2025 11:07 AM CDT) Narrative [facility] - 02/23/2025 11:08 AM CDT For details of this study, please see the providers note. us Kayla Pryor MD FLUOROSCOPY ORDERABLES Final Re sult [facility] [address] [place] [address] * LARYNGEAL MASK AIRWAY (02/23/2025 9:03 AM [...] Time: 4 minutes. Staff Section Anesthesia Provider: Peter Worley MD, Performed the procedure Peter Worley MD GENERAL ANESTHESIA ORDERABLES E dited Result - Final * XR Knee Left 4Vw or More (01/19/2025 10:32 AM CDT) Anatomical Region Laterality Modality Lower Extremity Radiographic Janel ging 01/19/2025 10:3 3 AM CDT Impressions 01/19/2025 12:20 PM CDT IMPRESSION: Total knee arthroplasty is intact. Report dictated by Ravinder Worthy MD, (vice president of recruiting). I, Tony Ortega MD have personally reviewed and interpreted this examination/study. > Interpreting Provider: Tony Ortega MD on 01/19/2025 12:20 PM Narrative 01/19/2025 12:20 PM CDT PROCEDURE: XR KNEE LEFT 4VW OR MORE, DATE/TIME OF EXAM: 01/19/2025 10:32 AM, LOCATION [facility] INDICATION: Z96.652: Hx of total knee replacement, left COMPARISON: X-ray of the left knee 07/07/2024 FINDINGS: Total knee arthroplasty is intact without periprosthetic loosening. Small joint effusion Bone density and texture are normal. Procedure Note Tony Ortega MD - 01/19/2025 PROCEDURE: XR KNEE LEFT 4VW OR MORE, DATE/TIME OF EXAM: 0:32 AM, LOCATION [facility] INDICATION: Z96.652: Hx of total knee replacement, left COMPARISON: X-ray of the left knee 07/07/2024 FINDINGS: Total knee arthroplasty is intact without periprosthetic loosening.Small joint effusion Bone density and texture are normal. IMPRESSION: Total knee arthroplasty is intact. Report dictated by Ravinder Worthy MD, (vice president of recruiting). I, Tony Ortega MD have personally reviewed [...] - 26 mg/dL 12/21/2024 7:[address] [facility] Creatinine 1.27(H) 0.57 - 1.11 mg/dL 12/21/2024 7:[address] [facility] eGFR by CKD-EPI 48(L) >=90 mL/min/1.7 3 m2 12/21/2024 7:[address] [facility] Blood BLOOD SPECIMEN / Unknown Lab Venipuncture / Unknown 12/21/2024 6:09 AM CDT 12/21/2024 7:03 AM CDT Fabian Davis MD LAB - CHEMISTRY ORDERABLES Final Result Performing Organization Address City/State/[facility] Co de Phone Number [facility] [address] [place], [place] [id number] * (ABNORMAL) CBC W/O DIFFERENTIAL (12/21/2024 6:08 AM CDT) WBC 12.8(H) 4.0 - 10.7 x10E9/L 12/21/2024 7:09 AM [facility] RBC Count 3.67(L) 3.90 - 5.20 x10E12/L 12/21/2024 7:09 AM [facility] Hemoglobin 10.5(L) 11.9 - 15.8 g/dL 12/21/2024 7:09 AM [facility] Hematocrit 32.7(L) 34.8 - 46.1 % 12/21/2024 7:09 AM [facility] MCV 89.1 80.0 - 98.0 fL 12/21/2024 7:09 AM [facility] MCH 28.6 26.7 - 33.6 pg 12/21/2024 7:09 AM [facility] MCHC 32.1 31.7 - 36.3 g/dL 12/21/2024 7:09 AM [facility] RDW-CV 13.4 11.3 - 14.8 % 12/21/2024 7:09 AM [facility] Platelet Count 208 150 - 420 x10E9/L 12/21/2024 7:09 AM [facility] MPV 10.3 7.8 - 11.4 fL 12/21/2024 7:09 AM [facility] Blood BLOOD SPECIMEN / Unknown Lab Venipuncture / Unknown 12/21/2024 6:08 AM CDT 12/21/2024 7:03 AM CDT us Fabian Davis MD LAB - HEMATOLOGY ORDERABLES Final Result [facility] [address] [place] [address] * Peripheral Nerve Block (12/20/2024 [...] Event Date/Time: 12/20/2024 7:31 AM Procedure: intubation (90971) Procedure Section: Sedation: under general anesthesia. Indications [...] Staphylococcus aureus (MRSA/MSSA) 12/03/2024 12:51 PM CDT [facility] MICROBIOLOGY Microbiology SPECIMEN FROM NASAL FOSSAE / Unknown Collection / Unknown 12/02/2024 7:15 AM CDT 12/02/2024 7:30 AM CDT Fabian Davis MD LAB - MICROBIOLOGY ORDERABL ES Final Result [facility] MICRO[facility]OLOGY [address] [place] [address], [facility] [[email or web address]] [phone] * (ABNORMAL) URINALYSIS REFLEX MICROSCOPIC REFLEX CULTURE (12/02/2024 7:15 AM CDT) Color UA Colorless(A ) Yellow, Straw 12/02/2024 7:[address] [facility] Clarity UA Clear Clear 12/02/2024 7:[address] [facility] Glucose UA Normal Normal 12/02/2024 7:[address] [facility] Bilirubin UA Negative Negative 12/02/2024 7:[address] [facility] Ketone UA Negative Negative 12/02/2024 7:[address] [facility] Specific [place] UA 1.012 1.005 - 1.030 12/02/2024 7:[address] [facility] Blood UA Negative Negative 12/02/2024 7:[address] [facility] pH UA 5.5 5.0 - 9.0 pH 12/02/2024 7:[address] [facility] Protein UA 1+(A) Negative 12/02/2024 7:[address] [facility] Urobilinogen UA Normal Normal mg/dL 12/02/2024 7:[address] [facility] Nitrite UA Negative Negative 12/02/2024 7:[address] [facility] Leukocyte Esterase UA Negative Negative 12/02/2024 7:[address] [facility] RBC UA 0-2 0 - 5 # /hpf 12/02/2024 7:[address] [facility] WBC UA 0-5 0 - 5 # /hpf 12/02/2024 7:[address] [facility] Bacteria UA None Seen None Seen 12/02/2024 7:[address] [facility] Squamous Epithelial Cells 0-2 0 - 5 /hpf 12/02/2024 7:[address] [facility] Urine URINE SPECIMEN OBTAINED BY CLEAN CATCH PROCEDURE / Unknown Collection / Unknown 12/02/2024 7:15 AM CDT 12/02/2024 7:30 AM CDT [facility] - 12/02/2024 7:39 AM CDT Fabian Davis MD LAB - URINALYSIS ORDERABLES Final Result [facility] [address] [place] [address] * TRANSFERRIN (12/02/2024 7:15 AM CDT) Transferrin 222 174 - 382 mg/dL 12/02/2024 7:[address] [facility] Blood BLOOD SPECIMEN / Unknown Venipuncture / Unknown 12/02/2024 7:15 AM CDT 12/02/2024 7:30 AM CDT Fabian Davis MD LAB - CHEMISTRY ORDERABLES Final Result Performing Organization Address [facility] Co de Phone Number [facility] [address] [place] [phone] * (ABNORMAL) HEMOGLOBIN A1C (12/02/2024 7:15 AM CDT) Hemoglobin A1c 5.8(H) <5.7 % 12/02/2024 7:[address] [facility] Estimated Average Glucose 120 mg/dL 12/02/2024 7:[address] [facility] Blood BLOOD SPECIMEN / Unknown Venipuncture / Unknown 12/02/2024 7:15 AM CDT 12/02/2024 7:[address] [facility] - 12/02/2024 7:53 AM CDT HbA1c [...] CHEMISTRY ORDERABLES Final Result Performing Organization Address [facility] de Phone Number [facility] [address] [place] [phone] * FRUCTOSAMINE (12/02/2024 7:15 AM CDT) [facility] Fructosamine 205 205 - 285 umol/L 12/04/2024 4:20 PM CDT [facility] ([facility]) Comment: INTERPRETIVE INFORMATION: Fructosamine Variations in levels of serum proteins (albumin and immunoglobulins) may affect fructosamine results. Performed By: [facility] [address] [place] [address] Youth Pastor: Judah Mejia MD, PhD CLIA Number: [id number] Blood BLOOD SPECIMEN / Unknown Venipuncture / Unknown 12/02/2024 7:15 AM CDT 12/02/2024 7:30 AM CDT Fabian Davis MD LAB - CHEMISTRY ORDERABLES Final Result Performing Organization Address [facility] de Phone Number [facility] ([facility]) [address] [place] [address] * CBC W AUTO DIFFERENTIAL (12/02/2024 7:15 AM CDT) Pathologist [facility] WBC 7.4 4.0 - 10.7 x10E9/L 12/02/2024 7:[address] [facility] RBC Count 4.18 3.90 - 5.20 x10E12/L 12/02/2024 7:[address] [facility] Hemoglobin 12.1 11.9 - 15.8 g/dL 12/02/2024 7:[address] [facility] Hematocrit 36.3 34.8 - 46.1 % 12/02/2024 7:[address] [facility] MCV 86.8 80.0 - 98.0 fL 12/02/2024 7:[address] [facility] MCH 28.9 26.7 - 33.6 pg 12/02/2024 7:[address] [facility] MCHC 33.3 31.7 - 36.3 g/dL 12/02/2024 7:[address] [facility] RDW-CV 13.1 11.3 - 14.8 % 12/02/2024 7:[address] [facility] Platelet Count 276 150 - 420 x10E9/L 12/02/2024 7:[address] [facility] MPV 9.8 7.8 - 11.4 fL 12/02/2024 7:38 AM [facility] Neutrophil % 59.1 41.0 - 74.0 % 12/02/2024 7:[address] [facility] Lymphocyte % 26.3 17.0 - 47.0 % 12/02/2024 7:[address] [facility] Monocyte % 9.8 3.0 - 11.0 % 12/02/2024 7:[address] [facility] Eosinophil % 3.8 0.0 - 7.0 % 12/02/2024 7:[address] [facility] Basophil % 0.5 0.0 - 1.6 % 12/02/2024 7:[address] [facility] Immature Granulocytes % 0.5 0.0 - 1.0 % 12/02/2024 7:[address] [facility] Neutrophil Absolute 4.36 1.60 - 7.50 x10E9/L 12/02/2024 7:[address] [facility] Lymphocyte Absolute 1.94 1.00 - 4.40 x10E9/L 12/02/2024 7:[address] [facility] Monocyte Absolute 0.72 0.15 - 1.00 x10E9/L 12/02/2024 7:[address] [facility] Eosinophil Absolute 0.28 0.00 - 0.60 x10E9/L 12/02/2024 7:[address] [facility] Basophil Absolute 0.04 0.00 - 0.13 x10E9/L 12/02/2024 7:38 AM [facility] Blood BLOOD SPECIMEN / Unknown Venipuncture / Unknown 12/02/2024 7:15 AM CDT 12/02/2024 7:30 AM CDT us Fabian Davis MD LAB - HEMATOLOGY ORDERABLES Final Result [facility] [address] [place] [address] * (ABNORMAL) COMPREHENSIVE METABOLIC PANEL (12/02/2024 7:15 AM CDT) Glucose 119(H) 70 - 99 mg/dL 12/02/2024 7:51 AM [facility] Sodium 139 136 - 145 mmol/L 12/02/2024 7:51 AM [facility] Potassium 4.0 3.5 - 5.1 mmol/L 12/02/2024 7:51 AM [facility] Chloride 110(H) 98 - 107 mmol/L 12/02/2024 7:51 AM [facility] CO2 23 22 - 29 mmol/L 12/02/2024 7:51 AM [facility] Calcium 8.6 8.4 - 10.4 mg/dL 12/02/2024 7:51 AM [facility] Anion Gap 6 6 - 16 mmol/L 12/02/2024 7:51 AM [facility] BUN 28(H) 7 - 26 mg/dL 12/02/2024 7:51 AM [facility] Creatinine 1.34(H) 0.57 - 1.11 mg/dL 12/02/2024 7:51 AM [facility] Alkaline Phosphatase 84 40 - 150 U/L 12/02/2024 7:51 AM [facility] ALT 17 6 - 57 U/L 12/02/2024 7:51 AM [facility] AST 19 10 - 48 U/L 12/02/2024 7:51 AM [facility] Protein Total 6.5 6.4 - 8.3 gm/dL 12/02/2024 7:[address] [facility] Albumin 3.6 3.4 - 5.0 gm/dL 12/02/2024 7:[address] [facility] Bilirubin Total 0.4 0.2 - 1.2 mg/dL 12/02/2024 7:[address] [facility] eGFR by CKD-EPI 45(L) >=90 mL/min/1.7 3 m2 12/02/2024 7:[address] [facility] Blood BLOOD SPECIMEN / Unknown Venipuncture / Unknown 12/02/2024 7:15 AM CDT 12/02/2024 7:30 AM CDT Fabian Davis MD LAB - CHEMISTRY ORDERABLES Final Result [facility] [address] [place] [address] from Last 3 Months Insurance [facility] Advance Directives * Full Code (Latest Code Status on File) Date Activated Date Inactivated Comments 12/20/2024 10:49 AM 12/21/2024 1:02 PM * Full Code Date Activated Date Inactivated Comments 09/05/2023 2:40 PM 09/06/2023 3:05 PM * Full Code Date Activated Date Inactivated Comments 09/05/2023 1:07 PM 09/05/2023 2:40 PM Care Teams Product Design Manager Relationship Specialty Start Date End Date Shanae Peralta DO [address] [place] [address] PCP - General Family Medicine 12/02/24
--- OUTSIDE RECORDS SUMMARY | 2025-02-28 22:15 | XMS_ITS | Continuity of Care Document ---
Author Organization [facility] Address [address] [place] [address] Phone Care Team Providers Care Gasoline Pump Mechanic Name Role Phone Julio Hassan MD, MD Unavailable Unavail able Allergies, Adverse Reactions, Alerts Substance Reaction Status Criticality Sulfa (Sulfonamide Antibiotics) Rash Active No Information Penicillins Rash Active No Information latex SwellingSwelling Active No Informat ion Procedures Procedure Date BMI Documented Above Normal Limit F/U Pl an Doc Office/outpatient visit,[facility] 2024 Advance Directives Directive Yes / No Effective Date File Name No Information Encounters Encounter Description Practice Location Reason(s) For Visit Diagnoses Date Provider Providers Copied on Encounter [facility], [address] [place] [address], [id number], tel:[phone] [facility] No Information 5 Mo Kim. [address], [id number], [place]. tel:[phone] Office/outpat ient visit,[facility], [address] [place] [address], [id number], [place] tel:[phone] [facility] Left wrist (chief complaint) Post-traumat ic osteoarthrit is, left wristOther specified sprain of left wrist, sequelaPain in left wrist Mo Kim. [address], [id number], [place]. tel:[phone] Family History Family Member Type Diagnosis Age At Onset Father Problem (finding) Heart Disease Mother Problem (finding) Osteoarthritis Mother Problem (finding) Heart Disease Mother Problem (finding) Osteoporosis Father Problem (finding) Cancer, unknown Payers Payer name Insurance type Covered republican ID Liz wood(s) Pauline LORENZ [id number] Social History Type Description Quantity Date Captured [...] second opinion. She did bring x-rays from [facility] dated July 31, 2023. 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 There is a mild DISI deformity [...]
--- OUTSIDE RECORDS SUMMARY | 2025-02-28 22:15 | XMS_ITS | Clinical Summary ---
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
--- OUTSIDE RECORDS SUMMARY | 2025-02-28 22:15 | XMS_ITS | Continuity of Care Document ---
Author Organization [facility] Address [address] [place] [address] [address] [place] [address] Phone Care Team Providers Care Final Assembly And Packing Supervisor Name Role Phone Miguel Augustine Unavailable Unavailable Procedures Procedure Date Office/outpatient Visit, Est Office/outpatient Visit, Est Office/outpatient Visit, Est Office/outpatient Visit, Est Office/outpatient Visit, New Advance Directives Directive Yes / No Effective Date File Name No Information Encounters Encounter Description Practice Location Reason(s) For Visit Diagnoses Date Provider Providers Copied on Encounter Office/outpat ient Visit, [facility], [address] [place] [address] [address], [place], [place], [id number], tel:[phone] [facility] No Information 0 Krishnasamy Miguel. [address], [facility] [place], [place]. tel:[phone] Office/outpat ient Visit, [facility], [address] [place] [address] [address], [place], [place], [id number], [place] tel:[phone] [facility] No Information [address] Krishnasamy Miguel. [address] [facility], [place], [place], [facility] [place], [place]. tel:[phone] Office/outpat ient Visit, [facility], [address] [place] [address] [address], [place], [place], [id number], [place] tel:[phone] [facility] No Information [address] Miguel. [address] [facility] [address], [place], [address], . tel:[phone] Office/outpat ient Visit, [facility], [address] [address], [place], [place], [id number], [place] tel:[phone] [facility] No Information 0 [address] Sharnasamy Miguel. [address] [facility] [address], [place], [address], . tel:[phone] Office/outpat ient Visit, [facility], [address] [address], [place], [place], [id number], [place] tel:[phone] [facility] No Information [address] [facility] [facility] [address], [place], [place], [facility], . tel:[phone] Family History Family Member Type Diagnosis Age At Onset No Information Payers Payer name Insurance type Covered libertarian ID Liz etiennetrenton(s) [facility] [id number] Social History Type Description Quantity Date Captured [...]
--- OUTSIDE RECORDS SUMMARY | 2025-02-28 22:15 | XMS_ITS | Encounter Summary ---
Author Organization [facility] Address 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
[2025-02-28 22:28] VITALS: BP 120/76; PULSE 68; RESP 16; TEMP 36.8; O2SAT 94
== END 2025-02-28 22:39 | disposition home or self-care (01) ==
PROVIDERS: Emergency Provider Emergency Medicine; PCP Family Medicine
DX: G89.18 Other acute postprocedural pain (principal); I12.9 Hypertensive chronic kidney disease with stage 1 through stage 4 chronic kidney disease, or unspecified chronic kidney disease; N18.31 Chronic kidney disease, stage 3a; G47.30 Sleep apnea, unspecified
CPT/HCPCS: 73110; 99283

== ENCOUNTER 2025-03-04 10:45 | Outpatient (RCR) | payer OTHER, SELFPAY ==
--- NOTE | 2025-01-20 09:41 | OPREHPOC ---
Outpatient Therapy Plan of Care This is a Multidisciplinary Plan of Care that may contain components documented by all disciplines (PT, OT, and ST.) PT Problem 1 PT Problem #1 Knowledge Deficit PT Goal 1 Goal / Goal Update 1. Patient to demonstrate independence with HEP for improved self-reliance of symptom management. Target Visit 10 PT Problem 2 PT Problem #2 Pain PT Goal 1 Goal / Goal Update 1. Patient to decrease subjective reports of pain to <2/10 for improved ADL tolerance Target Visit 10 PT Problem 3 PT Problem #3 Impaired Functional Mobility PT Goal 1 Goal / Goal Update 1. Pt will increase LEFS score by at least 9 points in order to demonstrate the minimal clinically important difference (MCID) in functional improvement. 2. Patient to improve gait mechanics and stair negotiation to no noted deficit and reciprocal pattern for improved community navigation. Target Visit 10 PT Problem 4 PT Problem #4 Impaired Range of Motion PT Goal 1 Goal / Goal Update 1. Patient to demonstrate an increase of L knee AROM of 0-120 deg to improve mobility required for gait/stair negotiation. Target Visit 10 PT Problem 5 PT Problem #5 Impaired Strength PT Goal 1 Goal / Goal Update 2. Pt will demonstrate ability to perform 5 SLR without extension lag, showing increased quadricep activation. Target Visit 10
--- NOTE | 2025-01-20 09:41 | PTOPEVAL1 ---
Assessment and note entered by Remigio Olsen, PT Evaluation Information Assessment Status Evaluation Diagnosis L knee TKA ICD-10 Condition Codes (PT) Pain in left knee M25.562,Abnormalities of gait and mobility R26.9,Weakness R53.1 Onset December 20 Subjective Information Patient presents status post case TKA on December [address] Davis Patient reports no complications with surgery. Patient walked without device prior to surgery. Patient is currently using straight cane assistive device. Patient doing stairs one at a time. Patient needs to get back to activities of daily living and enjoys walking and traveling. Patient is currently sleeping in bed but is not getting much due to inability to get comfortable. Reported Pain Level Pain Score 2: Self Report Assessment PT Clinical Summary Patient presents to physical therapy with a primary issue of L knee pain and stiffness since TKA on December 18. Patient demonstrates LE weakness, decreased quadricep activation, pain, decreased mobility,, gait deficit, and decreased flexibility that limit their ability to perform activities of daily living and functional movements. Patient will benefit from skilled physical therapy to address the above listed deficits and return to prior level of function. Home exercise program instructed and written handout provided, exercises tolerated well with no adverse effects to note post-session. Patient was educated on importance of adherence to home exercise program. Patient was also educated on anatomy, prognosis, home modalities, and plan of care Plan of Care Interventions Electrical Stimulation,Gait Training,Hot Pack/Cold Pack,Manual Therapy,Neuro Re-education,Patient/ Caregiver Education,Therapeutic Activities, Therapeutic Exercise,Self-Care/Home Management, Other PT Services Indicated Yes Treatment Frequency and 2x week 10 visits Duration These treatments will address the objective and functional deficits as defined above. The patient will be advanced safely and appropriately in order for the patient to progress towards his/her prior level of function. Additional exercises will be introduced and as well as a comprehensive home exercise program upon discharge, if needed, ?to ensure carryover of functional gains achieved in the clinic. This treatment plan has been reviewed and agreement upon by the patient.
--- NOTE | 2025-02-02 11:41 | PCPTNOTE ---
Patient cancelled appointment this date secondary to having another appointment at the same time.
--- NOTE | 2025-03-04 11:48 | PTOPDC ---
Assessment and note entered by Remigio Olsen, PT Evaluation Information Assessment Status Discharge Diagnosis L knee TKA ICD-10 Condition Codes (PT) Pain in left knee M25.562,Abnormalities of gait and mobility R26.9,Weakness R53.1 Onset December 20 Subjective Information Patient presents status post case TKA on December [address] Davis. Pt states overall she feels about 90% recovered. Pt notes continued difficulty going down stairs but has no other concerns. She notes she walked over a mile with no issues. She states she is still using her cane juts to be cautious. Pt recently had a surgery on L wrist for SLAC wrist and is currently in L wrist splint. Reported Pain Level Pain Score 0: Self Report Assessment PT Clinical Summary Patient's L knee has improved overall as evidenced by advancements in symptoms, mobility, strength, and overall functional use of the extremity. Deficits in quadricep activation and functional training of gait and stairs are still present. Education and updated HEP were provided on exercises to focus on and how to progress them. Patient has met ROM and pain therapy goals and is pleased with progress made towards the remaining goals regarding strength and functional movements. Patient to discharge from physical therapy this date and continue with updated home exercise program as instructed. Patient to contact physical therapist or primary care provider if questions or concerns arise Plan of Care PT Services Indicated No
== END 2025-03-04 12:39 | disposition home or self-care (01) ==
LOC: ANHGOSHPT 10:45
PROVIDERS: PCP Family Medicine; Visit Provider Orthopaedic Surgery
DX: Z47.1 Aftercare following joint replacement surgery (principal); Z96.652 Presence of left artificial knee joint
CPT/HCPCS: 97014; 97110; 97112; 97140; 97161; 97530; G0283

== ENCOUNTER 2025-07-07 15:00 | Outpatient (RCR) | payer OTHER, SELFPAY ==
--- NOTE | 2025-04-08 15:46 | OTOPEVAL1 ---
Assessment and note entered by Guillermo Oconnor, LEXIE/Pito, CHT Evaluation Information Assessment Status Evaluation Diagnosis SLAC wrist left wrist Subjective Information Patient underwent surgery for a SLAC wrist ~6 weeks ago - proximal row carpectomy. She is left handed. She presents in an off the shelf wrist immobilizer. She saw the surgeon yesterday who wants her to continue to wear the brace for another 2 weeks. 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 Reported Pain Level Pain Score 0: Self Report Assessment OT Clinical Summary Patient referred to OT following left wrist proximal row carpectomy secondary to SLAC wrist. She presents with a decline in left hand use due to stiffness, weakness, and pain. Educated on active ROM HEP for the wrist and fingers as well as scar mobilization/management. Continued follow up indicated for use of modalities, manual therapy , therapeutic exercise, and HEP progression to facilitate return of functional use of her left/ dominant hand for ADLs, work, and leisure activities. Plan of Care Interventions Therapeutic Exercise,Manual Therapy,Therapeutic Activities,Hot Pack/Cold Pack,Ultrasound,Paraffin OT Services Indicated Yes Treatment Frequency and 2x/week for 8 visits Duration These treatments will address the objective and functional deficits as defined above. The patient will be advanced safely and appropriately in order for the patient to progress towards his/her prior level of function. Additional exercises will be introduced and as well as a comprehensive home exercise program upon discharge, if needed, ?to ensure carryover of functional gains achieved in the clinic. This treatment plan has been reviewed and agreement upon by the patient.
--- NOTE | 2025-04-08 15:46 | OPREHPOC ---
Outpatient Therapy Plan of Care This is a Multidisciplinary Plan of Care that may contain components documented by all disciplines (PT, OT, and ST.) OT Problem 1 OT Problem #1 Knowledge Deficit OT Goal 1 Goal / Goal Update 1. Patient to be independent with instructed materials. Target Visit 8 OT Problem 2 OT Problem #2 Pain OT Goal 1 Goal / Goal Update 1. Patient to report 2/10 pain or less with left hand use for ADLs. Target Visit 8 OT Problem 3 OT Problem #3 Impaired Range of Motion OT Goal 1 Goal / Goal Update Patient to increase active ROM of the left UE for improved functional flexibility for ADLs: 1. be able to make a hook fist with less than 2 cm gap between the fingers and DPC 2. be joo to make a fist with no gap between fingers and palm 3. increase left wrist flexion from 20 to 30 degrees 4. increase left wrist extension from 15 to 25 degrees Target Visit 8
--- NOTE | 2025-05-06 11:21 | OTOPPROG ---
Assessment and note entered by Guillermo Oconnor, LEXIE/Pito, PIPERT OT Progress Update 05/06/25 Assessment Status Progress Diagnosis SLAC wrist left wrist Subjective Information -Patient underwent surgery for a SLAC wrist ~10 weeks ago - proximal row carpectomy. She is left handed. -She reports slow and steady progress. She notes that she feels a little more flexible and slightly stronger. She notes that she continues to feel weak and stiff. She is weaning out of the splint. She is not longer wearing the splint to do dishes, fold laundry, pull weeds, and brush teeth . She reports it feels awkward to feed herself with the left hand. She continues to need assistance for heavy tasks, such as carrying laundry baskets, pouring out a pot of pasta/water. Measurements: Wrist flexion improved from 15 to 20 degrees (passive 25 deg.) Wrist extension improved from 20 to [address] improved from 7 to 10 degrees Wrist UD improved from 7 to 15 degrees Composite fist is WFL, gross extensor tendon tightness noted Hook fist measuring 1.5-2 cm gap, intrinsic tightness noted (L) ski base trimmer strength 17 lbs (R) ski base trimmer strength 41 lbs. Assessment OT Clinical Summary Patient referred to OT following left wrist proximal row carpectomy secondary to SLAC wrist. Patient is making slow, steady progress with functional ROM and strength. She continues to have limited wrist motion and is making progress toward 30-35 degrees of expected range. She continues to have residual finger stiffness that limits ski base trimmer as well as gross weakness that limits return of use for heavier ADLs. Continued follow up indicated for use of modalities, manual therapy , therapeutic exercise, and HEP progression to facilitate return of functional use of her left/ dominant hand for ADLs, work, and leisure activities. Plan of Care Interventions Therapeutic Exercise,Manual Therapy,Therapeutic Activities,Hot Pack/Cold Pack,Ultrasound,Paraffin OT Services Indicated Yes Treatment Frequency and 2x/week for 8 visits Duration These treatments will address the objective and functional deficits as defined above. The patient will be advanced safely and appropriately in order for the patient to progress towards his/her prior level of function. Additional exercises will be introduced and as well as a comprehensive home exercise program upon discharge, if needed, ?to ensure carryover of functional gains achieved in the clinic. This treatment plan has been reviewed and agreement upon by the patient.
--- NOTE | 2025-05-06 11:22 | OPREHPOC ---
Outpatient Therapy Plan of Care This is a Multidisciplinary Plan of Care that may contain components documented by all disciplines (PT, OT, and ST.) OT Problem 1 OT Problem #1 Knowledge Deficit OT Goal 1 Goal / Goal Update 1. Patient to be independent with instructed materials. ---OT POC UPDATE 05/06/25--- 1. Met, continue as HEP is progressed Target Visit 9 OT Problem 2 OT Problem #2 Pain OT Goal 1 Goal / Goal Update 1. Patient to report 2/10 pain or less with left hand use for ADLs. ---OT POC UPDATE 05/06/25--- 1. Met, continue to monitor and treat pain Target Visit 16 OT Problem 3 OT Problem #3 Impaired Range of Motion OT Goal 1 Goal / Goal Update Patient to increase active ROM of the left UE for improved functional flexibility for ADLs: 1. be able to make a hook fist with less than 2 cm gap between the fingers and DPC 2. be joo to make a fist with no gap between fingers and palm 3. increase left wrist flexion from 20 to 30 degrees 4. increase left wrist extension from 15 to 25 degrees ---OT POC UPDATE 05/06/25--- 1. not met, continue 2. met 3. progressing, continue 4. met Target Visit 16 OT Problem 4 OT Problem #4 Impaired Strength OT Goal 1 Goal / Goal Update ---OT POC UPDATE 05/06/25--- NEW GOAL 1. 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 Target Visit 16
--- NOTE | 2025-05-18 15:42 | PCOTNOTE ---
Patient called & cancelled scheduled appointment this date.
--- NOTE | 2025-06-10 15:54 | OTOPPROG ---
Assessment and note entered by Guillermo Oconnor, KILEYR/Pito, CHT Assessment Status Progress Diagnosis SLAC wrist left wrist Subjective Information -Patient underwent surgery for a SLAC wrist ~15 weeks ago - proximal row carpectomy. She is left handed. -She reports slow and steady progress. She notes that she feels a little more flexible and slightly stronger. She notes that she continues to feel stiff. She reports she is doing better with feeding herself with the left hand, but that it feels awkward to eat soup. She reports she can now chop an onion. She continues to need assistance for heavy tasks, such as carrying laundry baskets and pouring out a pot of pasta/water. Measurements: Wrist flexion improved from 20 to 30 degrees (passive 35 deg.) Wrist extension improved from 30 to 40 degrees (passive 50 deg.) Wrist RD improved remained at 10 degrees Wrist UD improved from 15 to 20 degrees Composite fist is WFL, gross extensor tendon tightness noted Hook fist improved from 1.5-2 cm gap to 0.5-1 cm gap (L) public health aide strength improved from 17 lbs to 25 lbs. (R) public health aide strength 41 lbs. Assessment OT Clinical Summary Patient referred to OT following left wrist proximal row carpectomy secondary to SLAC wrist. Patient is making slow, steady progress with functional ROM and strength. Patient is has progressed to 30 degrees of wrist flexion and 40 degrees of wrist extension. Passive ROM continues to improve also. Carver Hand strength is progressing, but continues to measure below functional limits, which makes returning to griping difficult during ADLs. She continues to have muscle fatigue and weakness during ADLs also. Continued follow up indicated for use of modalities, manual therapy, therapeutic exercise, and HEP progression to facilitate return of functional use of her left/ dominant hand for ADLs, work, and leisure activities. Plan of Care Interventions Therapeutic Exercise,Manual Therapy,Therapeutic Activities,Hot Pack/Cold Pack,Ultrasound,Paraffin OT Services Indicated Yes Treatment Frequency and 2x/week for 8 visits Duration These treatments will address the objective and functional deficits as defined above. The patient will be advanced safely and appropriately in order for the patient to progress towards his/her prior level of function. Additional exercises will be introduced and as well as a comprehensive home exercise program upon discharge, if needed, ?to ensure carryover of functional gains achieved in the clinic. This treatment plan has been reviewed and agreement upon by the patient.
--- NOTE | 2025-06-10 15:56 | OPREHPOC ---
Outpatient Therapy Plan of Care This is a Multidisciplinary Plan of Care that may contain components documented by all disciplines (PT, OT, and ST.) OT Problem 1 OT Problem #1 Knowledge Deficit OT Goal 1 Goal / Goal Update 1. Patient to be independent with instructed materials. ---OT POC UPDATE 05/06/25--- 1. Met, continue as HEP is progressed ---OT POC UPDATE 06/10/25--- 1. Met, continue as HEP is progressed Target Visit 23 OT Problem 2 OT Problem #2 Pain OT Goal 1 Goal / Goal Update 1. Patient to report 2/10 pain or less with left hand use for ADLs. ---OT POC UPDATE 05/06/25--- 1. Met, continue to monitor and treat pain ---OT POC UPDATE 06/10/25--- 1. Occasionally met, continue to treat pain Target Visit 23 OT Problem 3 OT Problem #3 Impaired Range of Motion OT Goal 1 Goal / Goal Update Patient to increase active ROM of the left UE for improved functional flexibility for ADLs: 1. be able to make a hook fist with less than 2 cm gap between the fingers and DPC 2. be joo to make a fist with no gap between fingers and palm 3. increase left wrist flexion from 20 to 30 degrees 4. increase left wrist extension from 15 to 25 degrees ---OT POC UPDATE 05/06/25--- 1. not met, continue 2. met 3. progressing, continue 4. met ---OT POC UPDATE 06/10/25--- 1. Met 2. Met 3. Met - Upgrade to 40 4. Met - Upgrade to 50 Target Visit 23 OT Problem 4 OT Problem #4 Impaired Strength OT Goal 1 Goal / Goal Update ---OT POC UPDATE 05/06/25--- NEW GOAL 1. Increase left paper bag machine operator strength to 40 lbs. ---OT POC UPDATE 06/10/25--- 1. Progressing, not met, continue goal Target Visit 23
== END 2025-07-07 23:59 | disposition home or self-care (01) ==
LOC: ANHOT 15:00
PROVIDERS: PCP Family Medicine
DX: M19.132 Post-traumatic osteoarthritis, left wrist (principal); Z09 Encounter for follow-up examination after completed treatment for conditions other than malignant neoplasm
CPT/HCPCS: 97018; 97110; 97140; 97166; 97530

== ENCOUNTER 2025-07-15 07:32 | Outpatient (RCR) | payer OTHER, SELFPAY ==
--- NOTE | 2025-07-15 17:31 | OTOPDC ---
Assessment and note entered by Kaitlynn Ruts OT Evaluation Information Assessment Status Discharge Diagnosis SLAC wrist left wrist ICD-10 Condition Codes (OT) Joint stiffness of left wrist M25.632 Subjective Information Pt. reports that she believes herself to be making improvements, but still experiences frequent stiffness. Pt. reports she still has difficulty holding certain items and continues to drop things unexpectedly. Pt. reports she is able to eat soup again with her L, dominant hand and continues to have improvement with cooking tasks. Pt. reports that she continues to need assistance for heavy tasks, such as carrying laundry baskets and pouring out a pot of pasta/water, but she does not hesitate to ask family for assistance when needed . -Patient underwent surgery for a SLAC wrist ~20 weeks ago - proximal row carpectomy. She is left handed. Measurements: Wrist flexion remained at 30 degrees Wrist extension improved from 40 to [address] remained at 10 degrees Wrist UD remained at 15 degrees Composite fist is WFL, gross extensor tendon tightness noted Hook fist maintained at 0.5-1 cm gap (L) truck chauffeur strength improved to 26 lbs. (R) truck chauffeur strength 41 lbs. Reported Pain Level Pain Score 0: Self Report Additional Pain Score Comments Pt. reports no pain, just stiffness Assessment OT Clinical Summary Patient referred to OT following left wrist proximal row carpectomy secondary to SLAC wrist. Patient has made slow, but steady progress with functional ROM and strength, reports not pain, but frequent continued stiffness. Patient has progressed to 30 degrees of wrist flexion and 45 degrees of wrist extension. Brake Lining Maker strength has progressed to 26 lbs, below functional limits, which continues to limit return to prior level of function in activities, but is expected outcome with this surgery. Pt. reports she is content with the progress she has made during therapy, and can no longer attend treatments due to busy work schedule. Reviewed exercises and education regarding expectations for outcomes. Pt. is agreeable to discharge on this date. Plan of Care OT Services Indicated No
--- NOTE | 2025-07-15 17:31 | PCOTNOTE ---
The treatment documented on this account is a continuation of the treatment documented on visit number [id number] Please see documentation on both accounts to view progress. The Plan of Care has been transitioned and updated within the new [id number]. I have addressed and agree with the discipline specific Problems, Interventions, and Goals for the current certification period. Completed interventions, outcomes, and problems have been marked as Inactive to facilitate the copying of the Care plan routine for recurring accounts.
== END 2025-07-22 09:43 | disposition home or self-care (01) ==
LOC: ANHOT 07:32
PROVIDERS: PCP Family Medicine
DX: M19.132 Post-traumatic osteoarthritis, left wrist (principal); Z09 Encounter for follow-up examination after completed treatment for conditions other than malignant neoplasm
CPT/HCPCS: 97018; 97110